=== PATIENT | male | born 1960 | race Caucasian/White ===

== ENCOUNTER 2020-03-04 07:05 | Observation (INO) ==
--- NOTE | 2020-03-04 07:17 | DR.GENAD ---
HPI Time Seen Time Seen by Provider: 03/04/20 07:12 HPI Comment HPI Comment: PATIENT IS 59YR OLD MALE IN ER WITH LEFT SIDED WEAKNESS NOTED AT 06:00AM TODAY. HISTORY PREVIOUS CVA. Complaint/Symptoms Chief Complaint Doctors Comments: LEFT SIDED WEAKNESS SINCE 06:00AM. HISTORY CVA. Nurses notes reviewed Nurses Notes Review: Yes Source History Provided: Patient Mode of Arrival Mode of Arrival: EMS Timing Came on: Suddenly Duration Duration: Constant Duration: Hours Severity Severity: Moderate PMH PMH Past Surgical History: No Social History Do you use any recreational Drugs:: No ROS Review of Systems Constitutional: No Symptoms Reported and See HPI Eyes: No Symptoms Reported and See HPI ENTM: No Symptoms Reported and See HPI Respiratoy: No Symptoms Reported and See HPI Cardiovascular: No Symptoms Reported and See HPI Gastrointestinal/Abdominal: No Symptoms Reported and See HPI Genitourinary: No Symptoms Reported and See HPI Neurological: No Symptoms Reported and See HPI Musculoskeletal: No Symptoms Reported and See HPI Integumentary: No Symptoms Reported and See HPI Hematologic/Lymphatic: No Symptoms Reported and See HPI Endocrine: No Symptoms Reported and See HPI Psychiatric: No Symptoms Reported and See HPI All Other Systems: Reviewed and Negative PE Vital Signs Vitals: Temperature 98.0 F Pulse Rate 76 Respiratory Rate 17 Blood Pressure [Right Arm] 166/93 Blood Pressure 180/85 O2 Sat by Pulse Oximetry 100 General Limitations: No Limitations General Appearance: Alert and In No Apparent Distress Head Head Exam: Normal Inspection Eyes Eye exam: Normal Appearance ENT ENT Exam: Normal Exam External Ear Exam: Normal External Inspection TM/Canal Exam: Bilateral: Normal Nose Exam: Normal Nose Exam Mouth Exam: Normal Inspection Throat Exam: Normal Inspection Neck Neck Exam: Normal Inspection Chest Chest Inspection: Normal Inspection Respiratory Respiratory Exam: Normal Lung Sounds Bilat Respiratory Exam: Bilateral: Clear to Auscultation Cardiovascular Cardiovascular Exam: Regular Rate and Normal Rhythm Abdominal Exam Abdominal Exam: Normal Inspection, Normal Bowel Sounds and Soft Extremities Extremities Exam: Normal Inspection Back Back Exam: Normal Inspection Neurologic Neurological Exam: Alert and Oriented X3 Psychiatric Psychiatric Exam: Normal Affect and Normal Mood Skin Skin Exam: Warm, Dry, Intact and Normal Color MDM Differential Diagnosis Differential Diagnosis: CVA, TIA, COURSE Treatment Treatment: SEE ORDERS. Education/Counseling Education/Counseling: Patient Educated On: Diagnosis ROR Labs Reviewed Result Diagrams: 03/04/20 08:27 03/04/20 08:27 Laboratory: WBC 12.7 X10^3/uL (3.6-10.0) H 03/04/20 08:27 RBC 4.03 X10^6/uL (4.7-6.0) L 03/04/20 08:27 Hgb 10.8 g/dL (13.5-18.0) L 03/04/20 08:27 Hct 32.8 % (42.0-54.0) L 03/04/20 08:27 MCV 81.4 fL (80.0-100.0) 03/04/20 08: MCH 26.9 pg (27.0-34.0) L 03/04/20 08: MCHC 33.0 g/dL (33.0-35.0) 03/04/20 08: RDW 14.7 % (11.6-16.5) 03/04/20 08: Plt Count 414 X10^3/uL (150.0-450.0) 03/04/20 08: MPV 8.0 fL (7.4-11.0) 03/04/20 08:27 Neut % (Auto) 77.9 % (42.0-75.0) H 03/04/20 08: Lymph % (Auto) 13.8 % (21.0-51.0) L 03/04/20 08:27 [place] % (Auto) 7.1 % (0.0-13.0) 03/04/20 08: Eos % (Auto) 0.7 % (0.9-2.9) L 03/04/20 08: Baso % (Auto) 0.5 % (0.2-1.0) 03/04/20 08:27 Neut # (Auto) 9.9 x10^3/uL (2.2-4.8) H 03/04/20 08:27 Lymph # (Auto) 1.8 X10^3/uL (1.3-2.9) 03/04/20 08:27 [place] # (Auto) 0.9 x10^3/uL (0.3-0.8) H 03/04/20 08:27 Eos # (Auto) 0.1 x10^3/uL (0.0-0.2) 03/04/20 08:27 Baso # (Auto) 0.1 X10^3/uL (0.0-0.1) 03/04/20 08:27 Absolute Nucleated RBC 0.0 /100WBC 03/04/20 08:27 Opioid Opioid Risk Tool Age (Paolo box if 16-45): No Total: 0 Total Score Risk Category: Low Risk Copyright: Jonathan ESTES predicting aberrant behaviors
[2020-03-04 07:27] VITALS: BMI 21.9
--- NOTE | 2020-03-04 07:27 | CT ---
HISTORYLeft-sided weakness, history CVASTUDYCT head without contrastTechnique: Axial noncontrast images with coronal and sagittal reformats. Dose reduction procedures were used with mA/kv adjusted for body size.[id number]/05/2019FINDINGSThe ventricles are normal in size, shape, and position. There is evidence for an old CVA involving the right cerebellar hemisphere. There is an old lacunar infarct involving the right basal ganglia. There is slight decreased attenuation in the periventricular white matter suggestive of small vessel vascular disease. There are no focal areas of abnormal attenuation to suggest recent CVA, hemorrhage, mass lesion, or extra-axial fluid collection. The visualized sinuses are clear. The calvarium is intact. If acute CVA remains a strong clinical consideration MRI with diffusion imaging would be of further diagnostic value.IMPRESSIONNo definite acute intracranial abnormalityMild small vessel diseaseOld infarcts as described aboveElectronically signed by: ILIANA CASTILLO (Mar 04, 2020 07:25:43)
[2020-03-04 08:38] LABS: BASOPHILS # (AUTO) 0.1 X10^3/uL (0.0-0.1); BASOPHILS % (AUTO) 0.5 % (0.2-1.0); EOSINOPHILS # (AUTO) 0.1 x10^3/uL (0.0-0.2); EOSINOPHILS % (AUTO) 0.7 % (0.9-2.9); HEMATOCRIT 32.8 % (42.0-54.0); HEMOGLOBIN 10.8 g/dL (13.5-18.0); LYMPHOCYTES # (AUTO) 1.8 X10^3/uL (1.3-2.9); LYMPHOCYTES % (AUTO) 13.8 % (21.0-51.0); MEAN CORPUSCULAR HEMOGLOBIN 26.9 pg (27.0-34.0); MEAN CORPUSCULAR VOLUME 81.4 fL (80.0-100.0); MONOCYTES # (AUTO) 0.9 x10^3/uL (0.3-0.8); MONOCYTES % (AUTO) 7.1 % (0.0-13.0); NEUTROPHILS # (AUTO) 9.9 x10^3/uL (2.2-4.8); NEUTROPHILS % (AUTO) 77.9 % (42.0-75.0); PLATELET COUNT 414 X10^3/uL (150.0-450.0); RED BLOOD COUNT 4.03 X10^6/uL (4.7-6.0); RED CELL DISTRIBUTION WIDTH 14.7 % (11.6-16.5); WHITE BLOOD COUNT 12.7 X10^3/uL (3.6-10.0)
[2020-03-04 08:52] LABS: BLOOD UREA NITROGEN 11 mg/dL (7-18); CALCIUM 9.2 mg/dL (8.5-10.1); CARBON DIOXIDE 28.1 mmol/L (21-32); CHLORIDE 105 mmol/L (98-107); COR NA(FOR HYPERGLY) 144 mmol/L (136-145); CREATININE 1.06 mg/dL (0.70-1.30); SODIUM 143 mmol/L (136-145); TROPONIN I < 0.02 ng/mL (0-1.5); eGFR NON BLACK RACES > 60 (>60)
[2020-03-04 08:56] LABS: ALANINE AMINOTRANSFERASE 17 Units/L (12-78); ALBUMIN 2.8 g/dL (3.4-5.0); ALKALINE PHOSPHATASE 98 Units/L (46-116); ASPARTATE AMINO TRANSFERASE 11 Units/L (15-37); CKMB % 5.6 % (<4); COR CA(FOR HYPOALB) 10.2 mg/dL (8.5-10.1); CREATINE KINASE 18 Units/L (39-308); CREATINE KINASE MB < 1.0 ng/mL (0-4.0); TOTAL PROTEIN 7.1 g/dL (6.4-8.2)
[2020-03-04 10:58] LABS: BILIRUBIN,URINE NEGATIVE (NEGATIVE); BLOOD/HEMOGLOBIN,URINE 5+ (NEGATIVE); GLUCOSE, URINE NEGATIVE (NEGATIVE); KETONES,URINE NEGATIVE (NEGATIVE); LEUKOCYTE ESTERASE ,URINE 2+ (NEGATIVE); NITRITES,URINE NEGATIVE (NEGATIVE); PROTEIN,URINE 1+ (NEGATIVE); UROBILINOGEN,URINE NORMAL (NORMAL)
--- NOTE | 2020-03-04 11:00 | CT ---
HISTORYStroke worsening symptomSTUDYCTA brain with without contrastCOMPARISONCT same dayTECHNIQUEMultiple axial images of the brain were obtained from the skull base to the vertex before and after administration of IV contrast. A CTA protocol utilizing three-dimensional, sagittal coronal reformats were submitted and reviewed. Dose reduction techniques including Automated Exposure Control (AEC) and adjustment of mA and kV were utlized.FINDINGS[No acute intraparenchymal hemorrhage or mass can be identified.] [No extra-axial fluid collections are seen.] [No alteration in the attenuation of the brain parenchyma can be identified to suggest acute or subacute ischemic change.] Stable small vessel ischemic changes and old lacunar infarcts are noted in the right cerebellar hemisphere. [The ventricular system is symmetric and nondilated.] [The extracranial structures are grossly unremarkable.]Evaluation of the ICAs demonstrates some mild plaque formation the cavernous portions of the ICAs. The middle cerebral arteries and anterior cerebral arteries appear widely patent. There is no evidence for any aneurysm dilatation dissection. There is some venous contamination which limits evaluation. Posterior circulation is unremarkable. The vertebral basilar system appears codominant.IMPRESSIONMild plaque is noted in the cavernous ICAs otherwise negative CTA of the brain..]Electronically signed by: ZAMZAM UGARTE (Mar 04, 2020 10:58:23)
[2020-03-04 11:02] LABS: APPEARANCE,URINE CLOUDY (CLEAR); COLOR,URINE YELLOW (YELLOW)
--- NOTE | 2020-03-04 11:02 | CT ---
HISTORYCVA, WORSENING SYMPTOMS, CVA 1 YEAR AGOSTUDYCAROTID CTACOMPARISONNoneTECHNIQUEMultiple axial images of the neck were obtained from skull base to the aortic arch before and after the administration of IV contrast. A CTA protocol utilizing three-dimensional, sagittal and coronal reformats were performed and reviewed. Dose reduction techniques including Automated Exposure Control (AEC) and adjustment of mA and kV were utilized.FINDINGSThe visualized portions of the posterior fossa and orbits are unremarkable in appearance. The parotid glands, submandibular glands, and thyroid gland are unremarkable in their [contrast] appearance. The carotid space on the right and left is unremarkable. No mass or significant lymphadenopathy can be identified. The prevertebral and paraspinous regions are unremarkable. The nasopharynx, oropharynx, hypopharynx are unremarkable. The larynx appears symmetric. The visualized portions of the mediastinum are unremarkable as well. The bony structures appear intact. The visualized portions of the lung apex on the right and left are unremarkable as well.Origins great vessels are not completely included in the field of view appear widely patent. There is no significant plaque formation noted in the ICAs. There is no evidence for any dissection. The vertebral arteries appear codominant with no evidence for any significant plaque formation or dissection.IMPRESSIONNegative CTA of the neck.Electronically signed by: ZAMZAM UGARTE (Mar 04, 2020 11:01:29)
[2020-03-04 11:13] LABS: BACTERIA,URINE 1+ /HPF (NEGATIVE); RBC,URINE 20-30 /HPF (0-3); SQUAMOUS EPITHELIAL CELL,UR NEGATIVE /HPF (NEGATIVE)
--- NOTE | 2020-03-04 11:15 | DR.GENAD ---
HPI Time Seen Time Seen by Provider: 03/04/20 07:12 PCP Primary Care Physician: FAUSTINO Complaint/Symptoms Chief Complaint:: PT. C/O WORSENING LEFT SIDED WEAKNESS AT 0530. PT. HAD A CVA IS NOVEMBER OF 2018. PT. STATES HIS LEFT ARM FELT LIKE IT WAS ASLEEP AND HE WAS UNABLE TO MOVE HIS LEFT LEG. UPON ARRIVAL TO THE ER, PT. STATES HIS ARM STILLS FEELS LIKE IT IS ASLEEP BUT HE IS ABLE TO MOVE HIS LEFT LEG MORE THAN WHEN SYMPTOMS FIRST BEGAN. COVID-19 Coronavirus risk:travel/contact w/high risk person: No Has patient experienced Coronavirus symptoms: No Nurses notes reviewed Nurses Notes Review: Yes Source History Provided: Patient and EMS Mode of Arrival Mode of Arrival: EMS Timing Onset of Chief Complaint: 03/04/20 Came on: Suddenly Duration Duration: Constant Duration: Hours Severity Severity: Moderate PMH PMH Past Medical History: Yes Past Medical History: CVA, Diabetes and Hypertension Past Surgical History: Yes Surgical History: Appendectomy Family History History of Family Medical Conditions: No Social History Does patient currently use any type of tobacco product: Yes Have you used tobacco products in the last 12 months: Yes Type of Tobacco Use: DIPS Does any household member use tobacco: No Alcohol Use: Occasionally Do you use any recreational Drugs:: No Lives With: Family Lives Where: Home Travel Risk Coronavirus risk:travel/contact w/high risk person: No Has patient experienced Coronavirus symptoms: No Infectious screening In the last 2 months have you had wt loss of >10#?: NO Have you had fever, night sweats or hemotysis?: No Have you traveled outside the country in the last 6 months?: No Isolation: Standard PE Vital Signs Vitals: Temperature 98.0 F Pulse Rate 77 Respiratory Rate 17 Blood Pressure [Right Arm] 166/93 Blood Pressure 187/92 O2 Sat by Pulse Oximetry 98 COURSE Consultation Called: 11:16 Call Returned: 11:32 Consultation Comments: case discussed with admit stroke treatment ROR Labs Reviewed Result Diagrams: 03/04/20 08:27 03/04/20 08:27 Laboratory: WBC 12.7 X10^3/uL (3.6-10.0) H 03/04/20 08:27 RBC 4.03 X10^6/uL (4.7-6.0) L 03/04/20 08:27 Hgb 10.8 g/dL (13.5-18.0) L 03/04/20 08:27 Hct 32.8 % (42.0-54.0) L 03/04/20 08:27 MCV 81.4 fL (80.0-100.0) 03/04/20 08:27 MCH 26.9 pg (27.0-34.0) L 03/04/20 08:27 MCHC 33.0 g/dL (33.0-35.0) 03/04/20 08: RDW 14.7 % (11.6-16.5) 03/04/20 08:27 Plt Count 414 X10^3/uL (150.0-450.0) 03/04/20 08:27 MPV 8.0 fL (7.4-11.0) 03/04/20 08:27 Neut % (Auto) 77.9 % (42.0-75.0) H 03/04/20 08:27 Lymph % (Auto) 13.8 % (21.0-51.0) L 03/04/20 08:27 [place] % (Auto) 7.1 % (0.0-13.0) 03/04/20 08: Eos % (Auto) 0.7 % (0.9-2.9) L 03/04/20 08:27 Baso % (Auto) 0.5 % (0.2-1.0) 03/04/20 08:27 Neut # (Auto) 9.9 x10^3/uL (2.2-4.8) H 03/04/20 08:27 Lymph # (Auto) 1.8 X10^3/uL (1.3-2.9) 03/04/20 08:27 [place] # (Auto) 0.9 x10^3/uL (0.3-0.8) H 03/04/20 08:27 Eos # (Auto) 0.1 x10^3/uL (0.0-0.2) 03/04/20 08:27 Baso # (Auto) 0.1 X10^3/uL (0.0-0.1) 03/04/20 08:27 Absolute Nucleated RBC 0.0 /100WBC 03/04/20 08:27 PT 13.9 SECONDS (11.8-14.3) 03/04/20 08:27 INR Target Range - 03/04/20 08:27 INR 1.10 (0.8-1.3) 03/04/20 08:27 APTT 30.8 SECONDS (22.9-36.5) 03/04/20 08:27 PTT Comment - 03/04/20 08:27 Sodium 143 mmol/L (136-145) 03/04/20 08:27 Corrected Sodium 144 mmol/L (136-145) 03/04/20 08:27 Potassium 3.5 mmol/L (3.5-5.1) 03/04/20 08:27 Chloride 105 mmol/L (98-107) 03/04/20 08:27 Carbon Dioxide 28.1 mmol/L (21-32) 03/04/20 08:27 BUN 11 mg/dL (7-18) 03/04/20 08:27 Creatinine 1.06 mg/dL (0.70-1.30) 03/04/20 08:27 Est GFR (MDRD) Af Amer > 60 (>60) 03/04/20 08:27 Est GFR (MDRD) Non-Af > 60 (>60) 03/04/20 08:27 Glucose 147 mg/dL (65-99) H 03/04/20 08:27 POC Glucose (mg/dL) 136 mg/dL (65-99) H 03/04/20 07:30 Calcium 9.2 mg/dL (8.5-10.1) 03/04/20 08:27 Corrected Calcium 10.2 mg/dL (8.5-10.1) H 03/04/20 08:27 Total Bilirubin 0.30 mg/dL (0.2-1.0) 03/04/20 08:27 AST 11 Units/L (15-37) L 03/04/20 08:27 ALT 17 Units/L (12-78) 03/04/20 08:27 Alkaline Phosphatase 98 Units/L (46-116) 03/04/20 08:27 Creatine Kinase 18 Units/L (39-308) L 03/04/20 08:27 CK-MB (CK-2) < 1.0 ng/mL (0-4.0) 03/04/20 08:27 CK/CKMB % Calc 5.6 % (<4) 03/04/20 08:27 Troponin I < 0.02 ng/mL (0-1.5) 03/04/20 08:27 Total Protein 7.1 g/dL (6.4-8.2) 03/04/20 08:27 Albumin 2.8 g/dL (3.4-5.0) L 03/04/20 08:27 Globulin 4.3 g/dL (2.5-4.5) 03/04/20 08:27 Albumin/Globulin Ratio 0.7 Ratio (1.1-2.1) L 03/04/20 08:27 Specimen Type Random urine 03/04/20 10:44 Urine Color Yellow (YELLOW) 03/04/20 10:44 Urine Appearance Cloudy (CLEAR) 03/04/20 10:44 Urine pH 6.0 (5.0 - 8.0) 03/04/20 10:44 Ur Specific [place] 1.015 (1.000-1.030) 03/04/20 10:44 Urine Protein 1+ (NEGATIVE) 03/04/20 10:44 Urine Glucose (UA) Negative (NEGATIVE) 03/04/20 10:44 Urine Ketones Negative (NEGATIVE) 03/04/20 10:44 Urine Occult Blood 5+ (NEGATIVE) 03/04/20 10:44 Urine Nitrite Negative (NEGATIVE) 03/04/20 10:44 Urine Bilirubin Negative (NEGATIVE) 03/04/20 10:44 Urine Urobilinogen Normal (NORMAL) 03/04/20 10:44 Ur Leukocyte Esterase 2+ (NEGATIVE) 03/04/20 10:44 Urine RBC 20-30 /HPF (0-3) A 03/04/20 10:44 Urine WBC 10-20 /HPF (0-5) A 03/04/20 10:44 Ur Squamous Epith Cells Negative /HPF (NEGATIVE) 03/04/20 10:44 Urine Bacteria 1+ /HPF (NEGATIVE) 03/04/20 10:44 Ur Culture Indicated? Yes/culture set up 03/04/20 10:44 XRAY XRAY Interpreted by: Radiologist X-ray Results: CTA brain and carotids: no stenosis or significant blockage Opioid Opioid Risk Tool Age (Paolo box if 16-45): No History of Preadolescent Sexual Abuse: No Total: 0 Total Score Risk Category: Low Risk Copyright: Jonathan ESTES predicting aberrant behaviors
--- NOTE | 2020-03-04 12:45 | MRI ---
HISTORYCVASTUDYMRA HEAD W/O CONCOMPARISONCTA brain from 03/04/2020TECHNIQUE[1.5 T] 3D [id number] MR angiography of the brain was performed. Rotating MIP images were generated and reviewed.FINDINGSLimitations: [Mild motion degradation.]Intracranial internal carotid arteries: [Patent.] Mild atherosclerosis of the cavernous segments better seen on CTA.Anterior cerebral arteries: [Patent.]Middle cerebral arteries: [Patent.]Vertebrobasilar system:[Patent.]Posterior cerebral arteries: [Normal.]No vascular malformation.IMPRESSION[][No significant stenosis or occlusion.]Electronically signed by: Apollo Wright (Mar 04, 2020 12:42:56)
[2020-03-04] MEDS: MACROBID CAP 100 MG EXT REL PO SCH ×2 (14:56→21:40)
[2020-03-04] MEDS: NS 1000 ML 1,000 ML IV SCH (14:57)
[2020-03-05 06:51] LABS: BASOPHILS # (AUTO) 0.1 X10^3/uL (0.0-0.1); BASOPHILS % (AUTO) 0.5 % (0.2-1.0); EOSINOPHILS # (AUTO) 0.1 x10^3/uL (0.0-0.2); EOSINOPHILS % (AUTO) 0.7 % (0.9-2.9); HEMATOCRIT 31.8 % (42.0-54.0); HEMOGLOBIN 10.7 g/dL (13.5-18.0); LYMPHOCYTES % (AUTO) 16.6 % (21.0-51.0); MEAN CORPUSCULAR HEMOGLOBIN 27.2 pg (27.0-34.0); MEAN CORPUSCULAR HGB CONC 33.7 g/dL (33.0-35.0); MEAN CORPUSCULAR VOLUME 80.8 fL (80.0-100.0); MEAN PLATELET VOLUME 8.5 fL (7.4-11.0); MONOCYTES # (AUTO) 0.9 x10^3/uL (0.3-0.8); NEUTROPHILS # (AUTO) 8.8 x10^3/uL (2.2-4.8); NEUTROPHILS % (AUTO) 74.2 % (42.0-75.0); PLATELET COUNT 396 X10^3/uL (150.0-450.0); RED BLOOD COUNT 3.93 X10^6/uL (4.7-6.0); RED CELL DISTRIBUTION WIDTH 14.7 % (11.6-16.5); WHITE BLOOD COUNT 11.8 X10^3/uL (3.6-10.0)
[2020-03-05 07:02] LABS: ALANINE AMINOTRANSFERASE 16 Units/L (12-78); ALBUMIN 2.9 g/dL (3.4-5.0); ALKALINE PHOSPHATASE 94 Units/L (46-116); ASPARTATE AMINO TRANSFERASE 13 Units/L (15-37); BLOOD UREA NITROGEN 10 mg/dL (7-18); CALCIUM 9.3 mg/dL (8.5-10.1); CARBON DIOXIDE 26.2 mmol/L (21-32); CHLORIDE 105 mmol/L (98-107); COR CA(FOR HYPOALB) 10.2 mg/dL (8.5-10.1); COR NA(FOR HYPERGLY) 142 mmol/L (136-145); CREATININE 1.04 mg/dL (0.70-1.30); SODIUM 141 mmol/L (136-145); eGFR NON BLACK RACES > 60 (>60)
[2020-03-05 08:45] LABS: HEMOGLOBIN A1C 6.9 %
[2020-03-05 08:55] LABS: CHOL/HDL RATIO 4.9 (0.0-5.0); FREE T4 (FREE THYROXINE) 1.12 ng/dL (0.76-1.46); TSH (3RD GENERATION) 2.699 uIU/mL (0.358-3.74)
[2020-03-05] MEDS: LEVEMIR SC SCH (08:59)
[2020-03-05] MEDS: MACROBID CAP 100 MG EXT REL PO SCH ×2 (08:59→21:27)
[2020-03-05] MEDS: NORVASC TAB 10 MG PO SCH (09:00)
[2020-03-05] MEDS: PLAVIX PO SCH (09:00)
[2020-03-05 09:01] LABS: TOTAL PSA 0.32 ng/mL (0.13-4.0)
--- NOTE | 2020-03-05 13:11 | RAD ---
HISTORYAMSSTUDYCHEST, 1 VIEWCOMPARISONNone.FINDINGSMedical device projects over the left lung base. Heart size probably within normal limits. Small faint opacity in the right upper lobe. Lungs otherwise clear. Costophrenic angles sharp. Bony structures normal in appearance for patient's age. No tracheal deviation. Moderate elevation of the right hemidiaphragm.IMPRESSIONSmall faint opacity in right upper lobe. Recommend repeat examination in 1-2 months to assess for resolution.Electronically signed by: Jamin Jimenez (Mar 05, 2020 13:09:03)
[2020-03-05] MEDS: NS 1000 ML 1,000 ML IV SCH (14:03)
[2020-03-05] MEDS ORDERED: MICRO K EXTEN CAP 10 MEQ PO PRN (14:28)
[2020-03-05] MEDS ORDERED: MAGNESIUM SULFATE 1 GRAM/100 mL PREMIX 1 GM/100 ML BAG IV PRN (14:28)
[2020-03-05] MEDS ORDERED: POTASSIUM CHL 40 MEQ/NS 0.45% 500 ML IV PRN (14:28)
[2020-03-05] MEDS ORDERED: POTASSIUM CHL 60 MEQ/NS 0.45% 500 ML IV PRN (14:28)
[2020-03-05] MEDS ORDERED: K-RIDER 10 MEQ/NS 100 ML 10 MEQ/100 ML BAG IV PRN (14:28)
[2020-03-05] MEDS ORDERED: KLOR-CON PO PRN (14:28)
[2020-03-05] MEDS ORDERED: POTASSIUM CHLORIDE LIQ 20 MEQ UDC PO PRN (14:28)
[2020-03-05] MEDS: K-DUR TAB 20 MEQ PO PRN (16:20)
[2020-03-05] MEDS: CIPRO IV 400 MG PREMIX* 400 MG/200 ML IV.SOLN. IV SCH (18:15)
--- NOTE | 2020-03-05 18:20 | DR.H&P ---
H&P - History & Physical for Day of: H&P Date: 03/04/20 - Chief Complaint Chief Complaint: ACUTE LEFT SIDE WEAKNESS - History of Present Illness History of Present Illness: PT IS 59 WM ER ADMISSION WITH CO LEFT UPPER AND LOWER EXTREMITY WEAKNESS, STARTED ON WEDNESDAY AND GRADUALLY GOT WORSE. PT HAS PMH OF CVA OVER A YEAR AGO. PT HAS HTN AND DM. PT DENIES ANY CCC OR FLU LIKE SYMPTOMS, DENIES ANY CHEST PAIN OR SOB. PT HAD CT HEAD IN ER WITH OUT ACUTE FINDINGS. - Past Medical History Past Medical History: Hypertension, Diabetes, CVA - Past Surgical History Surgical History: Appendectomy - Social History Does patient currently use any type of tobacco product: Yes Have you used tobacco products in the last 12 months: Yes Type of Tobacco Use: DIPS Does any household member use tobacco: No Alcohol Use: Occasionally Drug Use: None - Medications Home Medications: shellfish derived Allergy (Verified 03/04/20 07:23) CONTINUE taking the following medications clopidogrel [Plavix] 75 mg PO DAILY 03/04/20 [History] insulin detemir U-100 [Levemir U-100 Insulin] 30 unit SUBCUT DAILY 03/04/20 [History] - Review of Systems Constitutional: Weakness Eyes: No Symptoms Reported ENT: No Symptoms Reported Respiratory: No Symptoms Reported Cardiovascular: No Symptoms Reported Gastrointestinal: No Symptoms Reported Genitourinary: No Symptoms Reported Musculoskeletal: Leg Pain Skin: No Symptoms Reported Neurological: Weakness, Numbness (LEFT UPPER AND LOWER EXTREMITY WEAKNESS) - Physical Exam Vital Signs: Temperature 97.7 F Pulse Rate [Right Brachial] 78 Pulse Rate 76 Respiratory Rate 18 Blood Pressure [Right Arm] 139/75 Blood Pressure 146/96 O2 Sat by Pulse Oximetry 99 Oriented: Normal Eyes: Blurred Vision Ear: Normal Nose: Normal Throat: Normal Respiratory: Clear Throughout Cardiovascular: Normal. negative: Edema : Normal Auscultation: Bowel Sounds: Normal Palpation: Normal Tenderness: Normal Skin: Decreased Turgur Musculoskeletal: Left, Arm, Leg, Motor Deficit, Sensory Deficit Psychiatric: Anxiety Affect: Anxious Speech Pattern: Clear, Appropriate - Assessment/Plan (1) Acute left-sided weakness Status: Acute Plan: ADMIT, CT HEAD IN ER ON ADMISSION, MRI/MRA BRAIN. SERIAL CE, EKG, CXR. BS CONTROL, BP CONTROL, CTA CAROTIDS. AM LIPID PANEL, PT CONSULT (2) Diabetes Status: Acute (3) History of CVA (cerebrovascular accident) Status: Acute (4) Hypertensive emergency Status: Acute - Allergies Allergies/Adverse Reactions: Allergies Allergy/AdvReac Type Severity Reaction Status Date / Time shellfish derived Allergy Verified 03/04/20 07:23
[2020-03-05] MEDS: SNACK - Diabetic Appropriate PO SCH (20:20)
[2020-03-05] MEDS: MILK OF MAGNESIA PO SCH (21:27)
[2020-03-05] MEDS: ZOCOR TAB 20 MG PO SCH (21:27)
[2020-03-05] MEDS: COLACE CAP 100 MG PO SCH (21:27)
--- NOTE | 2020-03-06 06:07 | RAD ---
HISTORYFollow-up lung infiltrateSTUDYChest AP [id number]/01/2020FINDINGSThe heart is within normal limits in size. The sukhwinder are normal. The lungs are well inflated and free of acute infiltrates. No pleural effusions are identified. Bony thorax is unremarkable. There is a loop recorder overlying the heart.IMPRESSIONLungs clearElectronically signed by: ILIANA CASTILLO (Mar 06, 2020 06:05:45)
[2020-03-06 06:51] LABS: BASOPHILS % (AUTO) 0.4 % (0.2-1.0); EOSINOPHILS # (AUTO) 0.1 x10^3/uL (0.0-0.2); EOSINOPHILS % (AUTO) 1.2 % (0.9-2.9); HEMATOCRIT 32.2 % (42.0-54.0); HEMOGLOBIN 10.3 g/dL (13.5-18.0); LYMPHOCYTES # (AUTO) 1.9 X10^3/uL (1.3-2.9); LYMPHOCYTES % (AUTO) 16.2 % (21.0-51.0); MEAN CORPUSCULAR HEMOGLOBIN 26.5 pg (27.0-34.0); MEAN CORPUSCULAR HGB CONC 32.1 g/dL (33.0-35.0); MEAN CORPUSCULAR VOLUME 82.5 fL (80.0-100.0); MEAN PLATELET VOLUME 8.6 fL (7.4-11.0); MONOCYTES % (AUTO) 8.7 % (0.0-13.0); NEUTROPHILS # (AUTO) 8.8 x10^3/uL (2.2-4.8); NEUTROPHILS % (AUTO) 73.5 % (42.0-75.0); PLATELET COUNT 392 X10^3/uL (150.0-450.0); RED CELL DISTRIBUTION WIDTH 14.4 % (11.6-16.5)
[2020-03-06 07:04] LABS: ALANINE AMINOTRANSFERASE 14 Units/L (12-78); ALBUMIN 2.7 g/dL (3.4-5.0); ALKALINE PHOSPHATASE 94 Units/L (46-116); ASPARTATE AMINO TRANSFERASE 11 Units/L (15-37); BLOOD UREA NITROGEN 11 mg/dL (7-18); CALCIUM 9.1 mg/dL (8.5-10.1); CARBON DIOXIDE 25.6 mmol/L (21-32); CHLORIDE 107 mmol/L (98-107); COR CA(FOR HYPOALB) 10.1 mg/dL (8.5-10.1); COR NA(FOR HYPERGLY) 145 mmol/L (136-145); CREATININE 1.05 mg/dL (0.70-1.30); SODIUM 144 mmol/L (136-145); TOTAL PROTEIN 6.6 g/dL (6.4-8.2); eGFR NON BLACK RACES > 60 (>60)
[2020-03-06] MEDS: LEVEMIR SC SCH (10:19)
[2020-03-06] MEDS: MILK OF MAGNESIA PO SCH ×3 (10:19→20:36)
[2020-03-06] MEDS: CIPRO IV 400 MG PREMIX* 400 MG/200 ML IV.SOLN. IV SCH (10:20)
[2020-03-06] MEDS: PLAVIX PO SCH (10:21)
[2020-03-06] MEDS: NORVASC TAB 10 MG PO SCH (10:21)
[2020-03-06] MEDS: K-DUR TAB 20 MEQ PO PRN (10:22)
[2020-03-06] MEDS: MACROBID CAP 100 MG EXT REL PO SCH (10:22)
[2020-03-06] MEDS ORDERED: HumuLIN R SUBCUT PRN (11:09)
[2020-03-06] MEDS ORDERED: HumuLIN R ONE (11:13)
[2020-03-06] MEDS: NS 1000 ML 1,000 ML IV SCH (11:30)
[2020-03-06] MEDS: ZESTRIL TAB 10 MG PO SCH (15:51)
[2020-03-06] MEDS ORDERED: ZESTRIL TAB 10 MG ONE (15:51)
[2020-03-06] MEDS: ROCEPHIN VIAL 1 GRAM 1 G in NS 100 ML IV + SPIKE MINIBAG* 100 ML IV SCH (18:47)
[2020-03-06] MEDS ORDERED: SNACK - Diabetic Appropriate PO SCH ×2 (20:00)
[2020-03-06] MEDS: SNACK - Diabetic Appropriate PO SCH (20:26)
[2020-03-06] MEDS: COLACE CAP 100 MG PO SCH (20:27)
[2020-03-06] MEDS: ZOCOR TAB 20 MG PO SCH (20:27)
[2020-03-07 05:09] LABS: BASOPHILS # (AUTO) 0.1 X10^3/uL (0.0-0.1); BASOPHILS % (AUTO) 0.5 % (0.2-1.0); EOSINOPHILS # (AUTO) 0.1 x10^3/uL (0.0-0.2); HEMATOCRIT 29.7 % (42.0-54.0); HEMOGLOBIN 10.1 g/dL (13.5-18.0); LYMPHOCYTES # (AUTO) 2.1 X10^3/uL (1.3-2.9); LYMPHOCYTES % (AUTO) 19.1 % (21.0-51.0); MEAN CORPUSCULAR HEMOGLOBIN 27.6 pg (27.0-34.0); MEAN CORPUSCULAR HGB CONC 33.9 g/dL (33.0-35.0); MEAN CORPUSCULAR VOLUME 81.5 fL (80.0-100.0); MONOCYTES # (AUTO) 0.9 x10^3/uL (0.3-0.8); MONOCYTES % (AUTO) 8.4 % (0.0-13.0); NEUTROPHILS # (AUTO) 7.9 x10^3/uL (2.2-4.8); PLATELET COUNT 344 X10^3/uL (150.0-450.0); RED BLOOD COUNT 3.64 X10^6/uL (4.7-6.0); RED CELL DISTRIBUTION WIDTH 14.7 % (11.6-16.5); WHITE BLOOD COUNT 11.1 X10^3/uL (3.6-10.0)
[2020-03-07 05:25] LABS: ALANINE AMINOTRANSFERASE 13 Units/L (12-78); ALBUMIN 2.5 g/dL (3.4-5.0); ALKALINE PHOSPHATASE 92 Units/L (46-116); ASPARTATE AMINO TRANSFERASE 10 Units/L (15-37); BLOOD UREA NITROGEN 13 mg/dL (7-18); CALCIUM 8.8 mg/dL (8.5-10.1); CARBON DIOXIDE 29.1 mmol/L (21-32); CHLORIDE 109 mmol/L (98-107); COR NA(FOR HYPERGLY) 145 mmol/L (136-145); CREATININE 1.13 mg/dL (0.70-1.30); SODIUM 144 mmol/L (136-145); TOTAL PROTEIN 6.2 g/dL (6.4-8.2); eGFR NON BLACK RACES > 60 (>60)
[2020-03-07] MEDS ORDERED: AMARYL TAB 4 MG ONE (05:40)
[2020-03-07] MEDS ORDERED: AMARYL TAB 4 MG PO SCH (07:00)
[2020-03-07] MEDS: NORVASC TAB 10 MG PO SCH (09:15)
[2020-03-07] MEDS: PLAVIX PO SCH (09:16)
[2020-03-07] MEDS: ZESTRIL TAB 10 MG PO SCH (09:16)
[2020-03-07] MEDS: ROCEPHIN VIAL 1 GRAM 1 G in NS 100 ML IV + SPIKE MINIBAG* 100 ML IV SCH (09:16)
[2020-03-07] MEDS: MILK OF MAGNESIA PO SCH (09:16)
[2020-03-07] MEDS: NS 1000 ML 1,000 ML IV SCH (11:16)
[2020-03-07 16:10] VITALS: BP 175/82
== END 2020-03-07 16:35 | disposition home or self-care (01) ==
LOC: MED/SURG 07:05 → ER 07:05 → MED/SURG 13:39
PROVIDERS: ADMIT Internal Medicine; ATTEND Internal Medicine
DX: Z86.73 Personal history of transient ischemic attack (TIA), and cerebral infarction without residual deficits; M62.81 Muscle weakness (generalized); N39.0 Urinary tract infection, site not specified; R06.02 Shortness of breath; E11.65 Type 2 diabetes mellitus with hyperglycemia; B96.29 Other Escherichia coli [E. coli] as the cause of diseases classified elsewhere; I16.0 Hypertensive urgency; R20.0 Anesthesia of skin; R41.82 Altered mental status, unspecified

== ENCOUNTER 2021-01-28 17:35 | Inpatient (IN) ==
--- NOTE | 2021-01-28 17:52 | DR.N/VMALE ---
HPI <MARLENYFREDDIE HECTOR - Last Filed: 01/28/21 19:33> Time Seen Time Seen by Provider: 01/28/21 17:49 Primary Care Physician Primary Care Physician: Corby Monterroso Chief Complaint Doctors Comments: VOMITING SINCE THIS AM. Chief Complaint:: Pt c/o vomiting since this am. He denies abd pain. He states he has not had a bowel movement in several days. COVID-19 Coronavirus risk:travel/contact w/high risk person: No Has patient experienced Coronavirus symptoms: No Reviewed Nurses Notes Reviewed: Yes Source History Provided: Patient Mode of Arrival Mode of Arrival: Ambulatory Timing Onset of Chief Complaint: 01/28/21 Context Onset: Spontaneous Recent: None History of: None Quality Quality: Food Particles Associated Signs and Symptoms Symptoms: denies Abdominal Pain and Diarrhea (CONSTIPATION.) PMH <ZACHKI YOUNG - Last Filed: 01/28/21 19:33> PMH Past Medical History: Yes Past Medical History: CVA, Diabetes and Hypertension Past Surgical History: Yes Surgical History: Appendectomy Family History History of Family Medical Conditions: Yes Family Medical History: Diabetes Mellitus and Hypertension Social History Does patient currently use any type of tobacco product: Yes Have you used tobacco products in the last 12 months: Yes Type of Tobacco Use: Smokeless Does any household member use tobacco: Yes Alcohol Use: DAILY Do you use any recreational Drugs:: No Lives With: Family Lives Where: Home Travel Risk Coronavirus risk:travel/contact w/high risk person: No Has patient experienced Coronavirus symptoms: No Infectious screening In the last 2 months have you had wt loss of >10#?: NO Have you had fever, night sweats or hemotysis?: No Have you traveled outside the country in the last 6 months?: No Isolation: Standard ROS <ZACHKI YOUNG - Last Filed: 01/28/21 19:33> Review of Systems Constitutional: No Symptoms Reported, See HPI, Weakness and Fatigue; negative Fever Eyes: No Symptoms Reported and See HPI ENTM: No Symptoms Reported and See HPI; negative Nose Discharge and Nose Congestion Respiratoy: No Symptoms Reported and See HPI; negative Moist Cough, Short of Breath and Wheezing Cardiovascular: No Symptoms Reported and See HPI; negative Chest Pain Gastrointestinal/Abdominal: See HPI, Constipation and Vomiting; negative Abdominal Pain and Diarrhea Genitourinary: No Symptoms Reported and See HPI; negative Dysuria, Frequency and Hematuria Neurological: See HPI and Weakness; negative Headache and Dizziness Musculoskeletal: No Symptoms Reported and See HPI; negative Back Pain and Muscle Pain Integumentary: No Symptoms Reported and See HPI; negative Change in Color, Rash and Juandice Hematologic/Lymphatic: No Symptoms Reported and See HPI; negative Easy Bruising Endocrine: No Symptoms Reported and See HPI; negative Increased Thirst and Increased Urine Psychiatric: No Symptoms Reported and See HPI All Other Systems: Reviewed and Negative PE <JOSHUA YOUNG - Last Filed: 01/28/21 19:33> Vital Signs Vitals: Temperature 98.3 F Pulse Rate 123 Respiratory Rate 18 Blood Pressure [Right Arm] 121/63 Blood Pressure 99/64 O2 Sat by Pulse Oximetry 96 General Limitations: No Limitations General Appearance: Alert and In No Apparent Distress Head Head Exam: Normal Inspection, Atraumatic and Normocephalic Eyes Eye exam: Normal Appearance and PERRL; negative Scleral Icterus and Conjunctival Injection ENT ENT Exam: Normal Exam, Normal Oropharynx, Normal External Ear Exam and TM's Normal Bilaterally Neck Neck Exam: Normal Inspection and Trachea Midline; negative Tenderness and Lymphadenopathy Chest Chest Inspection: Normal Inspection and Symmetric Chest Wall Rise; negative Tenderness Respiratory Respiratory Exam: Normal Lung Sounds Bilat; negative Accessory Muscle Use, Chest Wall Tenderness and Respiratory Distress Respiratory Exam: Bilateral: Clear to Auscultation Cardiovascular Cardiovascular Exam: Regular Rate, Normal Rhythm and Normal Heart Sounds; negative Systolic Murmur and Diastolic Murmur Abdominal Exam Abdominal Exam: Normal Inspection, Normal Bowel Sounds and Soft; negative Tenderness Rectal Rectal Exam: Deferred Exam: Male: Deferred Extremities Extremities Exam: Normal Inspection and Normal Capillary Refill Back Back Exam: Normal Inspection; negative (R) CVA Tenderness and (L) CVA Tenderness Neurologic Neurological Exam: Alert and Oriented X3; negative Motor Sensory Deficit Psychiatric Psychiatric Exam: Normal Affect and Normal Mood Skin Skin Exam: Dry <Lluvia Lawrence - Last Filed: 01/29/21 04:23> Vital Signs Vitals: Temperature 98.3 F Pulse Rate 123 Respiratory Rate 18 Blood Pressure [Right Arm] 121/63 Blood Pressure 99/64 O2 Sat by Pulse Oximetry 96 MDM <JOSHUA YOUNG - Last Filed: 01/28/21 19:33> Differential Diagnosis Differential Diagnosis: Considerations may Include:: Bowel Obstruction, C holecystitis, Gastritis, Gastroenteritis, Inflammatory BD, Pancreatitis, PUD, Urinary Tract Infection and Urolithiasis COURSE <JOSHUA YOUNG - Last Filed: 01/28/21 19:33> Treatment Treatment: SEE ORDERS. NS 1L IV BOLUS, ZOFRAN 4MG IV IN ER. <Lluvia Lawrence - Last Filed: 01/29/21 04:23> Treatment Treatment: 2000 took over pt care Reevaluation 1st: Worsened (threw up again; unable to keep water down after two doses of zofran and iv fluids) Consultation Consultation Comments: Dr Domingo accepts admission ROR <JOSHUA YONUG - Last Filed: 01/28/21 19:33> Labs Reviewed Result Diagrams: 01/28/21 18:11 01/28/21 18:11 Laboratory: WBC 17.3 X10^3/uL (3.6-10.0) H 01/28/21 18:11 RBC 4.42 X10^6/uL (4.7-6.0) L 01/28/21 18:11 Hgb 12.6 g/dL (13.5-18.0) L 01/28/21 18:11 Hct 37.4 % (42.0-54.0) L 01/28/21 18:11 MCV 84.5 fL (80.0-100.0) 01/28/21 18:11 MCH 28.4 pg (27.0-34.0) 01/28/21 18:11 MCHC 33.7 g/dL (33.0-35.0) 01/28/21 18:11 RDW 14.5 % (11.6-16.5) 01/28/21 18:11 Plt Count 184 X10^3/uL (150.0-450.0) 01/28/21 18:11 MPV 9.8 fL (7.4-11.0) 01/28/21 18:11 Neut % (Auto) 85.5 % (42.0-75.0) H 01/28/21 18:11 Lymph % (Auto) 6.2 % (21.0-51.0) L 01/28/21 18:11 [place] % (Auto) 8.1 % (0.0-13.0) 01/28/21 18:11 Eos % (Auto) 0.0 % (0.9-2.9) L 01/28/21 18:11 Baso % (Auto) 0.2 % (0.2-1.0) 01/28/21 18:11 Neut # (Auto) 14.8 x10^3/uL (2.2-4.8) H 01/28/21 18:11 Lymph # (Auto) 1.1 X10^3/uL (1.3-2.9) L 01/28/21 18:11 [place] # (Auto) 1.4 x10^3/uL (0.3-0.8) H 01/28/21 18:11 Eos # (Auto) 0.0 x10^3/uL (0.0-0.2) 01/28/21 18:11 Baso # (Auto) 0.0 X10^3/uL (0.0-0.1) 01/28/21 18:11 Absolute Nucleated RBC 0.1 /100WBC 01/28/21 18:11 Sodium 135 mmol/L (136-145) L 01/28/21 18:11 Corrected Sodium 140 mmol/L (136-145) 01/28/21 18:11 Potassium 4.3 mmol/L (3.5-5.1) 01/28/21 18:11 Chloride 99 mmol/L (98-107) 01/28/21 18:11 Carbon Dioxide 26.7 mmol/L (21-32) 01/28/21 18:11 BUN 15 mg/dL (7-18) 01/28/21 18:11 Creatinine 1.33 mg/dL (0.70-1.30) H 01/28/21 18:11 Est GFR (MDRD) Af Amer > 60 (>60) 01/28/21 18:11 Est GFR (MDRD) Non-Af 59 (>60) 01/28/21 18:11 Glucose 314 mg/dL (65-99) H 01/28/21 18:11 Calcium 9.8 mg/dL (8.5-10.1) 01/28/21 18:11 Corrected Calcium TNP 01/28/21 18:11 Total Bilirubin 0.70 mg/dL (0.2-1.0) 01/28/21 18:11 AST 342 Units/L (15-37) H 01/28/21 18:11 ALT 69 Units/L (12-78) 01/28/21 18:11 Alkaline Phosphatase 122 Units/L (46-116) H 01/28/21 18:11 Total Protein 8.2 g/dL (6.4-8.2) 01/28/21 18:11 Albumin 3.9 g/dL (3.4-5.0) 01/28/21 18:11 Globulin 4.3 g/dL (2.5-4.5) 01/28/21 18:11 Albumin/Globulin Ratio 0.9 Ratio (1.1-2.1) L 01/28/21 18:11 Amylase 38 Units/L (25-115) 01/28/21 18:11 Lipase 61 Units/L (73-393) L 01/28/21 18:11 Specimen Type Clean catch urine 01/28/21 19:46 Urine Color Yellow (YELLOW) 01/28/21 19:46 Urine Appearance Hazy (CLEAR) 01/28/21 19:46 Urine pH 5.0 (5.0 - 8.0) 01/28/21 19:46 Ur Specific Mcclure 1.015 (1.000-1.030) 01/28/21 19:46 Urine Protein 2+ (NEGATIVE) 01/28/21 19:46 Urine Glucose (UA) 4+ (NEGATIVE) 01/28/21 19:46 Urine Ketones Negative (NEGATIVE) 01/28/21 19:46 Urine Occult Blood 3+ (NEGATIVE) 01/28/21 19:46 Urine Nitrite Negative (NEGATIVE) 01/28/21 19:46 Urine Bilirubin Negative (NEGATIVE) 01/28/21 19:46 Urine Urobilinogen Normal (NORMAL) 01/28/21 19:46 Ur Leukocyte Esterase 3+ (NEGATIVE) 01/28/21 19:46 Urine RBC 0-2 /HPF (0-3) 01/28/21 19:46 Urine WBC Tntc /HPF (0-5) A 01/28/21 19:46 Ur Squamous Epith Cells Rare /HPF (NEGATIVE) 01/28/21 19:46 Urine Bacteria 3+ /HPF (NEGATIVE) 01/28/21 19:46 Ur Culture Indicated? Yes/culture set up 01/28/21 19:46 <Lluvia Lawrence - Last Filed: 01/29/21 04:23> Labs Reviewed Laboratory Results Reviewed?: Yes Laboratory: WBC 17.3 X10^3/uL (3.6-10.0) H 01/28/21 18:11 RBC 4.42 X10^6/uL (4.7-6.0) L 01/28/21 18:11 Hgb 12.6 g/dL (13.5-18.0) L 01/28/21 18:11 Hct 37.4 % (42.0-54.0) L 01/28/21 18:11 MCV 84.5 fL (80.0-100.0) 01/28/21 18:11 MCH 28.4 pg (27.0-34.0) 01/28/21 18:11 MCHC 33.7 g/dL (33.0-35.0) 01/28/21 18:11 RDW 14.5 % (11.6-16.5) 01/28/21 18:11 Plt Count 184 X10^3/uL (150.0-450.0) 01/28/21 18:11 MPV 9.8 fL (7.4-11.0) 01/28/21 18:11 Neut % (Auto) 85.5 % (42.0-75.0) H 01/28/21 18:11 Lymph % (Auto) 6.2 % (21.0-51.0) L 01/28/21 18:11 [place] % (Auto) 8.1 % (0.0-13.0) 01/28/21 18:11 Eos % (Auto) 0.0 % (0.9-2.9) L 01/28/21 18:11 Baso % (Auto) 0.2 % (0.2-1.0) 01/28/21 18:11 Neut # (Auto) 14.8 x10^3/uL (2.2-4.8) H 01/28/21 18:11 Lymph # (Auto) 1.1 X10^3/uL (1.3-2.9) L 01/28/21 18:11 [place] # (Auto) 1.4 x10^3/uL (0.3-0.8) H 01/28/21 18:11 Eos # (Auto) 0.0 x10^3/uL (0.0-0.2) 01/28/21 18:11 Baso # (Auto) 0.0 X10^3/uL (0.0-0.1) 01/28/21 18:11 Absolute Nucleated RBC 0.1 /100WBC 01/28/21 18:11 Sodium 135 mmol/L (136-145) L 01/28/21 18:11 Corrected Sodium 140 mmol/L (136-145) 01/28/21 18:11 Potassium 4.3 mmol/L (3.5-5.1) 01/28/21 18:11 Chloride 99 mmol/L (98-107) 01/28/21 18:11 Carbon Dioxide 26.7 mmol/L (21-32) 01/28/21 18:11 BUN 15 mg/dL (7-18) 01/28/21 18:11 Creatinine 1.33 mg/dL (0.70-1.30) H 01/28/21 18:11 Est GFR (MDRD) Af Amer > 60 (>60) 01/28/21 18:11 Est GFR (MDRD) Non-Af 59 (>60) 01/28/21 18:11 Glucose 314 mg/dL (65-99) H 01/28/21 18:11 Calcium 9.8 mg/dL (8.5-10.1) 01/28/21 18:11 Corrected Calcium TNP 01/28/21 18:11 Total Bilirubin 0.70 mg/dL (0.2-1.0) 01/28/21 18:11 AST 342 Units/L (15-37) H 01/28/21 18:11 ALT 69 Units/L (12-78) 01/28/21 18:11 Alkaline Phosphatase 122 Units/L (46-116) H 01/28/21 18:11 Total Protein 8.2 g/dL (6.4-8.2) 01/28/21 18:11 Albumin 3.9 g/dL (3.4-5.0) 01/28/21 18:11 Globulin 4.3 g/dL (2.5-4.5) 01/28/21 18:11 Albumin/Globulin Ratio 0.9 Ratio (1.1-2.1) L 01/28/21 18:11 Amylase 38 Units/L (25-115) 01/28/21 18:11 Lipase 61 Units/L (73-393) L 01/28/21 18:11 Specimen Type Clean catch urine 01/28/21 19:46 Urine Color Yellow (YELLOW) 01/28/21 19:46 Urine Appearance Hazy (CLEAR) 01/28/21 19:46 Urine pH 5.0 (5.0 - 8.0) 01/28/21 19:46 Ur Specific Mcclure 1.015 (1.000-1.030) 01/28/21 19:46 Urine Protein 2+ (NEGATIVE) 01/28/21 19:46 Urine Glucose (UA) 4+ (NEGATIVE) 01/28/21 19:46 Urine Ketones Negative (NEGATIVE) 01/28/21 19:46 Urine Occult Blood 3+ (NEGATIVE) 01/28/21 19:46 Urine Nitrite Negative (NEGATIVE) 01/28/21 19:46 Urine Bilirubin Negative (NEGATIVE) 01/28/21 19:46 Urine Urobilinogen Normal (NORMAL) 01/28/21 19:46 Ur Leukocyte Esterase 3+ (NEGATIVE) 01/28/21 19:46 Urine RBC 0-2 /HPF (0-3) 01/28/21 19:46 Urine WBC Tntc /HPF (0-5) A 01/28/21 19:46 Ur Squamous Epith Cells Rare /HPF (NEGATIVE) 01/28/21 19:46 Urine Bacteria 3+ /HPF (NEGATIVE) 01/28/21 19:46 Ur Culture Indicated? Yes/culture set up 01/28/21 19:46 XRAY XRAY Interpreted by: Radiologist X-ray Results: abd xr: 1.No acute cardiopulmonary disease. 2.No evidence for acute abdominal pathology. Opioid <JOSHUA YOUNG - Last Filed: 01/28/21 19:33> Opioid Risk Tool Age (Paolo box if 16-45): No History of Preadolescent Sexual Abuse: No Total: 0 Total Score Risk Category: Low Risk Copyright: Jonathan ESTES predicting aberrant behaviors <Lluiva Lawrence - Last Filed: 01/29/21 04:23> Opioid Risk Tool Total: 0 Total Score Risk Category: Low Risk <JOSHUA YOUNG - Last Filed: 01/28/21 19:33> Diagnosis Discharge Problem: Acute UTI, Nausea and vomiting in adult patient Leukocytosis Qualifiers: Leukocytosis type: lymphocytosis Qualified Code(s): D72.820 - Lymphocytosis (symptomatic) Instructions Forms: [facility] Patient Portal Social Distancing
[2021-01-28] MEDS ORDERED: NS 1000 ML 1,000 ML IV ONE (18:03)
[2021-01-28] MEDS ORDERED: ZOFRAN INJ 4 MG VIAL IVP ONE ×2 (18:03→20:59)
[2021-01-28] MEDS ORDERED: NS 1000 ML 1,000 ML ONE ×2 (18:06→22:39)
[2021-01-28] MEDS ORDERED: ZOFRAN INJ 4 MG VIAL ONE ×2 (18:06→21:02)
[2021-01-28 18:24] LABS: BASOPHILS % (AUTO) 0.2 % (0.2-1.0); HEMATOCRIT 37.4 % (42.0-54.0); HEMOGLOBIN 12.6 g/dL (13.5-18.0); LYMPHOCYTES # (AUTO) 1.1 X10^3/uL (1.3-2.9); LYMPHOCYTES % (AUTO) 6.2 % (21.0-51.0); MEAN CORPUSCULAR HEMOGLOBIN 28.4 pg (27.0-34.0); MEAN CORPUSCULAR HGB CONC 33.7 g/dL (33.0-35.0); MEAN CORPUSCULAR VOLUME 84.5 fL (80.0-100.0); MEAN PLATELET VOLUME 9.8 fL (7.4-11.0); MONOCYTES # (AUTO) 1.4 x10^3/uL (0.3-0.8); MONOCYTES % (AUTO) 8.1 % (0.0-13.0); NEUTROPHILS # (AUTO) 14.8 x10^3/uL (2.2-4.8); NEUTROPHILS % (AUTO) 85.5 % (42.0-75.0); PLATELET COUNT 184 X10^3/uL (150.0-450.0); RED BLOOD COUNT 4.42 X10^6/uL (4.7-6.0); RED CELL DISTRIBUTION WIDTH 14.5 % (11.6-16.5); WHITE BLOOD COUNT 17.3 X10^3/uL (3.6-10.0)
--- NOTE | 2021-01-28 18:38 | RAD ---
ACUTE ABDOMEN SERIESHISTORY:VomitingStudy: Frontal view of the chest, flat and upright views of the abdomenComparison:NoneFindings:Cardiomediastinal silhouette is normal in size .No focal consolidations, pleural effusions or pneumothorax.Flat and upright views of the abdomen demonstrates a normal bowel gas pattern.No free air..No abnormal calcifications or abnormal soft tissue shadows. No acute bony abnormalities.IMPRESSION:1.No acute cardiopulmonary disease.2.No evidence for acute abdominal pathology.Electronically signed by: CHARLES SANDOVAL (Jan 28, 2021 18:36:22)
[2021-01-28 18:45] LABS: ALANINE AMINOTRANSFERASE 69 Units/L (12-78); ALBUMIN 3.9 g/dL (3.4-5.0); ALKALINE PHOSPHATASE 122 Units/L (46-116); AMYLASE 38 Units/L (25-115); ASPARTATE AMINO TRANSFERASE 342 Units/L (15-37); BLOOD UREA NITROGEN 15 mg/dL (7-18); CALCIUM 9.8 mg/dL (8.5-10.1); CARBON DIOXIDE 26.7 mmol/L (21-32); CHLORIDE 99 mmol/L (98-107); COR NA(FOR HYPERGLY) 140 mmol/L (136-145); CREATININE 1.33 mg/dL (0.70-1.30); LIPASE 61 Units/L (73-393); SODIUM 135 mmol/L (136-145); TOTAL PROTEIN 8.2 g/dL (6.4-8.2); eGFR NON BLACK RACES 59 (>60)
[2021-01-28 20:25] LABS: BILIRUBIN,URINE NEGATIVE (NEGATIVE); BLOOD/HEMOGLOBIN,URINE 3+ (NEGATIVE); GLUCOSE, URINE 4+ (NEGATIVE); KETONES,URINE NEGATIVE (NEGATIVE); LEUKOCYTE ESTERASE ,URINE 3+ (NEGATIVE); NITRITES,URINE NEGATIVE (NEGATIVE); PROTEIN,URINE 2+ (NEGATIVE); UROBILINOGEN,URINE NORMAL (NORMAL)
[2021-01-28 20:44] LABS: APPEARANCE,URINE HAZY (CLEAR); BACTERIA,URINE 3+ /HPF (NEGATIVE); COLOR,URINE YELLOW (YELLOW); RBC,URINE 0-2 /HPF (0-3); SQUAMOUS EPITHELIAL CELL,UR RARE /HPF (NEGATIVE)
[2021-01-28] MEDS ORDERED: ROCEPHIN 1 GRAM IV PREMIX 1 G/50 ML IV.SOLN. IV ONE ×2 (20:46→20:50)
[2021-01-28] MEDS ORDERED: NS 100 ML IV 100 ML ONE (20:51)
[2021-01-28] MEDS ORDERED: ZOFRAN TAB 4 MG PO PRN (22:26)
[2021-01-28] MEDS: ROCEPHIN VIAL 1 GRAM 1 G in NS 100 ML IV + SPIKE MINIBAG* 100 ML IV SCH (22:39)
[2021-01-28] MEDS: NS 1000 ML 1,000 ML IV SCH (22:40)
[2021-01-29 01:27] VITALS: BMI 21.1
[2021-01-29 04:23] LABS: BASOPHILS % (AUTO) 0.2 % (0.2-1.0); HEMATOCRIT 35.8 % (42.0-54.0); HEMOGLOBIN 12.2 g/dL (13.5-18.0); LYMPHOCYTES # (AUTO) 1.2 X10^3/uL (1.3-2.9); LYMPHOCYTES % (AUTO) 6.1 % (21.0-51.0); MEAN CORPUSCULAR HEMOGLOBIN 28.5 pg (27.0-34.0); MEAN CORPUSCULAR VOLUME 83.9 fL (80.0-100.0); MONOCYTES # (AUTO) 1.5 x10^3/uL (0.3-0.8); MONOCYTES % (AUTO) 7.7 % (0.0-13.0); NEUTROPHILS # (AUTO) 16.7 x10^3/uL (2.2-4.8); PLATELET COUNT 171 X10^3/uL (150.0-450.0); RED BLOOD COUNT 4.27 X10^6/uL (4.7-6.0); RED CELL DISTRIBUTION WIDTH 14.7 % (11.6-16.5); WHITE BLOOD COUNT 19.4 X10^3/uL (3.6-10.0)
[2021-01-29 04:47] LABS: ALANINE AMINOTRANSFERASE 55 Units/L (12-78); ALBUMIN 3.3 g/dL (3.4-5.0); ALKALINE PHOSPHATASE 104 Units/L (46-116); BLOOD UREA NITROGEN 15 mg/dL (7-18); CALCIUM 9.1 mg/dL (8.5-10.1); CARBON DIOXIDE 24.8 mmol/L (21-32); CHLORIDE 104 mmol/L (98-107); COR CA(FOR HYPOALB) 9.7 mg/dL (8.5-10.1); COR NA(FOR HYPERGLY) 144 mmol/L (136-145); CREATININE 1.05 mg/dL (0.70-1.30); SODIUM 141 mmol/L (136-145); TOTAL PROTEIN 7.1 g/dL (6.4-8.2); eGFR NON BLACK RACES > 60 (>60)
[2021-01-29 05:29] LABS: ASPARTATE AMINO TRANSFERASE 243 Units/L (15-37)
[2021-01-29] MEDS ORDERED: HumuLIN R SUBCUT PRN (05:40)
--- NOTE | 2021-01-29 07:13 | RAD ---
HISTORYSOB, LOW OXYGEN SATURATIONSTUDYCHEST, 1 [id number]/10/2021.TECHNIQUEAP view of the chestFINDINGSCardiac and mediastinal contours are within normal limits. Bilateral airspace opacities particularly in the perihilar and infrahilar lung. No pleural effusion or pneumothorax.IMPRESSIONBilateral central distribution of airspace opacities may represent pulmonary edema or pneumonia.Electronically signed by: Apollo Wright (Jan 29, 2021 07:11:18)
[2021-01-29] MEDS: NS 1000 ML 1,000 ML IV SCH ×2 (09:11→15:00)
[2021-01-29] MEDS: ROCEPHIN VIAL 1 GRAM 1 G in NS 100 ML IV + SPIKE MINIBAG* 100 ML IV SCH (09:12)
[2021-01-29] MEDS ORDERED: ZITHROMAX INJ 500 MG VIAL 500 MG in NS 250 ML IV 250 ML IV SCH (10:12)
[2021-01-29] MEDS ORDERED: XOPENEX 1.25 MG/3 ML NEBULE NEB PRN (10:17)
[2021-01-29] MEDS ORDERED: INVANZ INJ 1 GM VIAL 1 GM in NS 100 ML IV + SPIKE MINIBAG* 100 ML IV SCH (11:00)
[2021-01-29 11:17] LABS: ABG BASE EXCESS 0.2 mmol/L (-2.0-2.0); ABG HCO3 23.5 mmol/L (22-26)
[2021-01-29 11:18] LABS: ABG ALLEN TEST POS
[2021-01-29] MEDS ORDERED: LASIX IVP ONE (11:51)
[2021-01-29] MEDS ORDERED: XOPENEX 1.25 MG/3 ML NEBULE NEB SCH (12:00)
[2021-01-29] MEDS ORDERED: ASPIRIN 81 MG CHEWTAB PO ONE (14:05)
[2021-01-29] MEDS ORDERED: ASPIRIN 81 MG CHEWTAB ONE (14:06)
[2021-01-29] MEDS ORDERED: PLAVIX ONE (14:08)
[2021-01-29] MEDS ORDERED: HEPARIN SODIUM INJ 5000 UNITS IVP ONE (14:35)
[2021-01-29] MEDS ORDERED: HEPARIN SODIUM IN D5W 25,000 UNITS/500 ML BAG IV PRN (14:38)
[2021-01-29] MEDS ORDERED: PLAVIX PO SCH (15:00)
[2021-01-29 15:07] LABS: CKMB % 5.4 % (<4)
[2021-01-29 15:08] LABS: CREATINE KINASE MB 46.1 ng/mL (0-4.0); TROPONIN I 24.46 ng/mL (0-1.5)
[2021-01-29] MEDS ORDERED: LOPRESSOR TAB 25 MG PO SCH (15:19)
[2021-01-29] MEDS ORDERED: LOPRESSOR TAB 25 MG ONE (15:24)
[2021-01-29 16:04] LABS: CKMB % 5.9 % (<4)
[2021-01-29 16:05] LABS: CREATINE KINASE MB 77.9 ng/mL (0-4.0); TROPONIN I 32.4 ng/mL (0-1.5)
[2021-01-29] MEDS ORDERED: NS 500 ML IV 500 ML IV ONE ×2 (16:30→17:00)
--- NOTE | 2021-01-29 17:09 | DR.H&P ---
H&P - History & Physical for Day of: H&P Date: 01/28/21 - Chief Complaint Chief Complaint: Nausea and vomiting - History of Present Illness History of Present Illness: Patient is a 60 year old white male who is being admitted due to nausea and vomiting. Patient reports he has been experiencing nausea with projectile vomiting x 1 days. Denies abdominal pain. Reports last BM was several days ago. Deneis fever, chills, SOB, or any other concerns at present. PMH HTN, CVA in 2019. Denies smoking or alcohol consumption. Does report dipping. - Past Medical History Past Medical History: Hypertension, Diabetes, CVA - Past Surgical History Surgical History: Appendectomy - Family History Family Medical History: Diabetes Mellitus, Hypertension - Social History Does patient currently use any type of tobacco product: Yes Have you used tobacco products in the last 12 months: Yes Type of Tobacco Use: Smokeless How many years tobacco product used: 50 Does any household member use tobacco: No Alcohol Use: None Drug Use: None - Medications Home Medications: shellfish derived Allergy (Verified 03/04/20 07:23) CONTINUE taking the following medications aspirin 81 mg PO DAILY 01/29/21 [History] - Review of Systems Constitutional: See HPI Eyes: See HPI ENT: See HPI Respiratory: See HPI Cardiovascular: See HPI Gastrointestinal: See HPI Genitourinary: See HPI Musculoskeletal: See HPI Skin: See HPI Neurological: See HPI - Physical Exam Vital Signs: Temperature 98.2 F Pulse Rate [Radial] 93 Pulse Rate 123 Respiratory Rate 20 Blood Pressure [Left Arm] 71/52 Blood Pressure [Right Arm] 131/65 Blood Pressure 99/64 O2 Sat by Pulse Oximetry 100 Oriented: Normal, Time, Person, Place Eyes: Normal Ear: Normal Nose: Normal Throat: Normal Respiratory: Diminished Throughout, Rhonchi Throughout Cardiovascular: Tachycardia : Normal Auscultation: Bowel Sounds: Normal Palpation: Normal Tenderness: Normal Skin: Normal Musculoskeletal: Normal Psychiatric: Normal Mood Description: Calm Affect: Normal Speech Pattern: Clear, Appropriate - Assessment/Plan (1) Leukocytosis Qualifiers: Leukocytosis type: lymphocytosis Qualified Code(s): D72.820 - Lymphocytosis (symptomatic) Status: Acute Plan: IV abx, IV fluids, Cultures pending, Repeat labs in am (2) Nausea and vomiting in adult patient Status: Acute (3) Diabetes Status: Acute - Allergies Allergies/Adverse Reactions: Allergies Allergy/AdvReac Type Severity Reaction Status Date / Time shellfish derived Allergy Verified 03/04/20 07:23
[2021-01-29 17:29] VITALS: BP 81/54
[2021-01-29] MEDS ORDERED: SNACK - Diabetic Appropriate PO SCH (20:00)
[2021-01-29] MEDS ORDERED: LIPITOR TAB 20 MG PO SCH (21:00)
[2021-01-30] MEDS ORDERED: ASPIRIN EC 81 MG PO SCH (09:00)
== END 2021-01-29 17:30 | disposition short-term general hospital (02) | DRG 392 ==
LOC: MED/SURG 17:39 → ER 17:39 → OBSVTOIN 22:25 → MED/SURG 01-29 00:38 → ICU 01-29 14:35
PROVIDERS: ADMIT Internal Medicine; ATTEND Internal Medicine
DX: I10 Essential (primary) hypertension; R94.31 Abnormal electrocardiogram [ECG] [EKG]; R26.89 Other abnormalities of gait and mobility; N39.0 Urinary tract infection, site not specified; R06.02 Shortness of breath; E86.0 Dehydration; B96.29 Other Escherichia coli [E. coli] as the cause of diseases classified elsewhere; R11.2 Nausea with vomiting, unspecified; Z20.822 Contact with and (suspected) exposure to COVID-19; E11.65 Type 2 diabetes mellitus with hyperglycemia

== ENCOUNTER 2024-09-15 12:25 | Inpatient (IN) ==
[2024-09-15] MEDS: APRESOLINE INJ 20 MG VIAL IVP ONE ×2 (13:05→18:20)
[2024-09-15 13:24] LABS: BASOPHILS % (AUTO) 0.5 % (0.2-1.0); EOSINOPHILS # (AUTO) 0.1 x10^3/uL (0.0-0.2); HEMATOCRIT 43.3 % (42.0-54.0); HEMOGLOBIN 14.2 g/dL (13.5-18.0); LYMPHOCYTES # (AUTO) 1.1 X10^3/uL (1.3-2.9); LYMPHOCYTES % (AUTO) 14.7 % (21.0-51.0); MEAN CORPUSCULAR HGB CONC 32.9 g/dL (33.0-35.0); MEAN PLATELET VOLUME 11.3 fL (7.4-11.0); MONOCYTES # (AUTO) 0.5 x10^3/uL (0.3-0.8); NEUTROPHILS # (AUTO) 5.8 x10^3/uL (2.2-4.8); NEUTROPHILS % (AUTO) 76.8 % (42.0-75.0); PLATELET COUNT 106 X10^3/uL (150.0-450.0); RED BLOOD COUNT 5.09 X10^6/uL (4.7-6.0); RED CELL DISTRIBUTION WIDTH 18.2 % (11.6-16.5); WHITE BLOOD COUNT 7.5 X10^3/uL (3.6-10.0)
--- NOTE | 2024-09-15 13:27 | DR.HTN ---
HPI Time Seen Time Seen by Provider: 09/15/24 13:26 Primary Care Physician Primary Care Physician: Samm RIDDLE Complaints Chief Complaint Doctors Comments: Patient states he has had some swelling of his left arm and left leg over the last 3 to 4 days. He has had a stroke he does have left-sided weakness. The patient has not seen a primary care provider in years he states he does have a history of hypertension but he has not taken any medication for that. Chief Complaint:: Patient states that his left leg and left arm started swelling 3 or 4 days ago. He states that he previously had a stroke on that side and has weakness in both since the stroke. He states that both his left arm and left leg feels like it is sunburned. COVID-19 Coronavirus risk:travel/contact w/high risk person: No Has patient experienced Coronavirus symptoms: No Source History Provided: Patient and Family Member Mode of Arrival Mode of Arrival: Wheelchair Timing Onset of Chief Complaint: 09/12/24 Severity What was the maximum recorded B/P?: 179/111 Context Treatment of HTN Prior to Arrival: No Rx for HTN meds and Noncompliant Associated Signs and Symptoms HTN Associated Signs and Symptoms: Shortness of Breath PMH PMH Past Medical History: Yes Past Medical History: CHF, Coronary Artery Disease, Diabetes, Hypertension and [place] Past Surgical History: Yes Surgical History: Angioplasty/Stents and Appendectomy Past Surgical History Comment: Pace maker placement Family History History of Family Medical Conditions: Yes Family Medical History: Diabetes Mellitus and Hypertension Social History Does patient currently use any type of tobacco product: Yes Have you used tobacco products in the last 12 months: Yes Type of Tobacco Use: Smokeless Does any household member use tobacco: Yes Alcohol Use: Occasionally Do you use any recreational Drugs:: No Lives Where: Home Travel Risk Coronavirus risk:travel/contact w/high risk person: No Has patient experienced Coronavirus symptoms: No Infectious screening In the last 2 months have you had wt loss of >10#?: NO Have you had fever, night sweats or hemotysis?: No Have you traveled outside the country in the last 6 months?: No Isolation: Standard ROS Review of Systems Constitutional: Other (swelling of left leg and arm) Eyes: No Symptoms Reported ENTM: No Symptoms Reported Respiratoy: Short of Breath Cardiovascular: No Symptoms Reported Gastrointestinal/Abdominal: No Symptoms Reported Genitourinary: No Symptoms Reported Neurological: No Symptoms Reported Musculoskeletal: No Symptoms Reported Integumentary: Other (swelling of left arm and leg) Endocrine: No Symptoms Reported Psychiatric: No Symptoms Reported PE Vital Signs Vitals: Vital Signs Temperature 98.3 F Temperature 98.3 F Temperature 98.3 F Pulse Rate 116 Respiratory Rate 20 Respiratory Rate 20 Respiratory Rate 18 Blood Pressure [Left Arm] 179/11 Blood Pressure [Left Arm] 155/98 Blood Pressure [Left Arm] 169/95 Blood Pressure [Left Arm] 173/119 Blood Pressure 177/103 Blood Pressure 165/118 O2 Sat by Pulse Oximetry 98 O2 Sat by Pulse Oximetry 98 O2 Sat by Pulse Oximetry 97 General Limitations: No Limitations and Physical Limitation (antalgic gait due to left side weakness) General Appearance: In Distress (mild distress) Head Head Exam: Normal Inspection, Atraumatic and Normocephalic Eyes Eye exam: Normal Appearance Pupils: Regular, Round: Bilateral Sclera/Conjunctival: Normal Inspection: Bilateral ENT ENT Exam: Normal Exam, Normal Oropharynx and Normal External Ear Exam Neck Neck Exam: Normal Inspection, Full ROM and Trachea Midline Chest Chest Inspection: Normal Inspection and Symmetric Chest Wall Rise Respiratory Respiratory Exam: Normal Lung Sounds Bilat Cardiovascular Cardiovascular Exam: Regular Rate Abdominal Exam Abdominal Exam: Normal Inspection Extremities Extremities Exam: Tenderness (left arm and leg) Back Back Exam: Normal Inspection Neurologic Neurological Exam: Alert, Oriented X3 and CN II-XII Intact Patient Oriented To: Person and Place Speech: Fluid Speech Motor Strength - LUE: 3/5 Motor Strength - RUE: 4/5 Motor Strength - LLE: 3/5 Motor Strength - RLE: 4/5 Skin Skin Exam: Warm, Intact and Erythema (left upper arm/lower leg) MDM Differential Diagnosis Differential Diagnosis: CHF, Hyertension, essential and Pulmonary edema Differential Diagnosis Comment: cellulitis COURSE Treatment Treatment: Patient remained relatively stable during ER evaluation. We did do a chest x-ray on the patient show cardiomegaly with some elevation of the left hemidiaphragm. There also was suggestion of some heart failure. The patient also had a pacemaker. Patient had a metabolic panel and the potassium was low at 3.3 and blood sugar was 152. The patient had CBC that was normal had a D- dimer and it was 2.46 and since the patient had a pacemaker we did not do a CTA of the chest because he was allergic to shellfish. Patient had a lactic acid level that was 2.7 and initially we checked it about 2 hours later and was 1.0. The patient was given Zosyn 3.375 mg IV here in the ER and had blood cultures x 2 done. We did speak to the on-call physician Dr. Prince 1700 and let him know that we had already given the patient 600 of Lasix since his BNP was 1500. And he told him about the elevated D-dimer and we did not do a CTA of the chest because he had an allergy to shellfish. The patient was admitted for CHF elevation in his D-dimer. Also has some cellulitic changes which he was given Zosyn 3.375 mg and will be given Zosyn 3.375 mg IV every 8 hours. The patient was advised of the intent to admit and eventually was agreeable to the admission. ROR Labs Reviewed Laboratory Results Reviewed?: Yes 09/15/24 12:50 09/15/24 12:50 Laboratory: WBC 7.5 X10^3/uL (3.6-10.0) 09/15/24 12:50 RBC 5.09 X10^6/uL (4.7-6.0) 09/15/24 12:50 Hgb 14.2 g/dL (13.5-18.0) 09/15/24 12:50 Hct 43.3 % (42.0-54.0) 09/15/24 12:50 MCV 85.0 fL (80.0-100.0) 09/15/24 12:50 MCH 28.0 pg (27.0-34.0) 09/15/24 12:50 MCHC 32.9 g/dL (33.0-35.0) L 09/15/24 12:50 RDW 18.2 % (11.6-16.5) H 09/15/24 12:50 Plt Count 106 X10^3/uL (150.0-450.0) L 09/15/24 12:50 MPV 11.3 fL (7.4-11.0) H 09/15/24 12:50 Neut % (Auto) 76.8 % (42.0-75.0) H 09/15/24 12:50 Lymph % (Auto) 14.7 % (21.0-51.0) L 09/15/24 12:50 [place] % (Auto) 7.0 % (0.0-13.0) 09/15/24 12:50 Eos % (Auto) 1.0 % (0.9-2.9) 09/15/24 12:50 Baso % (Auto) 0.5 % (0.2-1.0) 09/15/24 12:50 Neut # (Auto) 5.8 x10^3/uL (2.2-4.8) H 09/15/24 12:50 Lymph # (Auto) 1.1 X10^3/uL (1.3-2.9) L 09/15/24 12:50 [place] # (Auto) 0.5 x10^3/uL (0.3-0.8) 09/15/24 12:50 Eos # (Auto) 0.1 x10^3/uL (0.0-0.2) 09/15/24 12:50 Baso # (Auto) 0.0 X10^3/uL (0.0-0.1) 09/15/24 12:50 Absolute Nucleated RBC 0.1 /100WBC 09/15/24 12:50 D-Dimer 2.46 ug/ml (0.0-0.57) H 09/15/24 12:50 Sodium 139 mmol/L (136-145) 09/15/24 12:50 Corrected Sodium 140 mmol/L (136-145) 09/15/24 12:50 Potassium 3.3 mmol/L (3.5-5.1) L 09/15/24 12:50 Chloride 103 mmol/L (98-107) 09/15/24 12:50 Carbon Dioxide 23.7 mmol/L (21-32) 09/15/24 12:50 BUN 12 mg/dL (7-18) 09/15/24 12:50 Creatinine 1.19 mg/dL (0.70-1.30) 09/15/24 12:50 Est GFR (MDRD) Af Amer > 60 (>60) 09/15/24 12:50 Est GFR (MDRD) Non-Af > 60 (>60) 09/15/24 12:50 Glucose 152 mg/dL (65-99) H 09/15/24 12:50 Lactic Acid 1.0 mmol/L (0.4-2.0) 09/15/24 14:58 Calcium 9.2 mg/dL (8.5-10.1) 09/15/24 12:50 Corrected Calcium TNP 09/15/24 12:50 Total Bilirubin 1.90 mg/dL (0.2-1.0) H 09/15/24 12:50 AST 18 Units/L (15-37) 09/15/24 12:50 ALT 21 Units/L (12-78) 09/15/24 12:50 Alkaline Phosphatase 143 Units/L (46-116) H 09/15/24 12:50 B-Natriuretic Peptide 1560 pg/mL (0-79) H 09/15/24 12:50 Total Protein 7.0 g/dL (6.4-8.2) 09/15/24 12:50 Albumin 3.7 g/dL (3.4-5.0) 09/15/24 12:50 Globulin 3.3 g/dL (2.5-4.5) 09/15/24 12:50 Albumin/Globulin Ratio 1.1 Ratio (1.1-2.1) 09/15/24 12:50 Specimen Type Clean catch urine 09/15/24 16:19 Urine Color Yellow (YELLOW) 09/15/24 16:19 Urine Appearance Clear (CLEAR) 09/15/24 16:19 Urine pH 6.0 (5.0 - 8.0) 09/15/24 16:19 Ur Specific [place] 1.015 (1.000-1.030) 09/15/24 16:19 Urine Protein 2+ (NEGATIVE) 09/15/24 16:19 Urine Glucose (UA) Negative (NEGATIVE) 09/15/24 16:19 Urine Ketones Negative (NEGATIVE) 09/15/24 16:19 Urine Blood Negative (NEGATIVE) 09/15/24 16:19 Urine Nitrite Negative (NEGATIVE) 09/15/24 16:19 Urine Bilirubin Negative (NEGATIVE) 09/15/24 16:19 Urine Urobilinogen Normal (NORMAL) 09/15/24 16:19 Ur Leukocyte Esterase Negative (NEGATIVE) 09/15/24 16:19 Urine RBC None seen /HPF (0-3) 09/15/24 16:19 Urine WBC None seen /HPF (0-5) 09/15/24 16:19 Ur Squamous Epith Cells Rare /HPF (NEGATIVE) 09/15/24 16:19 Urine Bacteria Negative /HPF (NEGATIVE) 09/15/24 16:19 Ur Culture Indicated? No/not indicated 09/15/24 16:19 Opioid Opioid Risk Tool Age (Paolo box if 16-45): No History of Preadolescent Sexual Abuse: No Total: 0 Total Score Risk Category: Low Risk Copyright: Jonathan ESTES predicting aberrant behaviors Discharge Plan Diagnosis Discharge Problem: CHF (congestive heart failure), D-dimer, elevated, Cellulitis Discharge Plan Patient Disposition: ADMITTED INPATIENT Condition: Stable Prescriptions: No Action NK Health Concerns: Post Hospitalization: new medications and changes needed to prevent readmission or further decline. Pt educated and given instructions on all concerns. Plan of Treatment: Continue with present treatment and follow up plan. Pt is to keep follow up appointment as instructed and take medications as ordered. Orders to Discharge Patient Discharge Orders: Transfer (Routine); Ordered 09/15/24 Ordered By: Todd Dozier Follow ups/Referrals Follow ups/Referrals: JEROD ESPINOSA [Primary Care Provider, MEDICAL] - 3 days Instructions Stand Alone Forms: Find Help Web Site, Post Hospital Follow Up Care Print Language: GRENADIAN
[2024-09-15 13:29] LABS: ALANINE AMINOTRANSFERASE 21 Units/L (12-78); ALBUMIN 3.7 g/dL (3.4-5.0); ALKALINE PHOSPHATASE 143 Units/L (46-116); ASPARTATE AMINO TRANSFERASE 18 Units/L (15-37); BLOOD UREA NITROGEN 12 mg/dL (7-18); CALCIUM 9.2 mg/dL (8.5-10.1); CARBON DIOXIDE 23.7 mmol/L (21-32); CHLORIDE 103 mmol/L (98-107); COR NA(FOR HYPERGLY) 140 mmol/L (136-145); CREATININE 1.19 mg/dL (0.70-1.30); GLUCOSE 152 mg/dL (65-99); POTASSIUM 3.3 mmol/L (3.5-5.1); SODIUM 139 mmol/L (136-145); eGFR NON BLACK RACES > 60 (>60)
[2024-09-15] MEDS: NS 1,000 ML IV 1,000 ML IV ONE (14:20)
[2024-09-15] MEDS: ZOSYN VIAL 3.375 GRAMS 3.375 G in NS 100 ML IV 100 ML IV ONE (14:31)
--- NOTE | 2024-09-15 14:32 | RAD ---
EXAM: CHEST, 1 VIEW HISTORY: sob; COMPARISON: Prior study or studies were utilized for comparison during interpretation with the most relevant dated 01/29/2021 TECHNIQUE: CHEST, 1 VIEW FINDINGS: Chest: Lines and tubes: Left-sided pacemaker generator with lead or leads in satisfactory position. Mediastinum: Borderline cardiomegaly. Pulmonary vessels: There is pulmonary vascular congestion. Lung mccloud: Patchy opacities are seen Pleura: There is blunting of the left costophrenic angle. No pneumothorax. Bones and soft tissues: No acute osseous or soft tissue abnormality. IMPRESSION: 1. Findings suggest heart failure THIS IS AN ELECTRONICALLY VERIFIED FINAL REPORT 09/15/2024 2:28 PM - Electronically signed by Colin Li MD
[2024-09-15] MEDS: LASIX IVP ONE (15:25)
[2024-09-15 16:45] LABS: BILIRUBIN,URINE NEGATIVE (NEGATIVE); BLOOD/HEMOGLOBIN,URINE NEGATIVE (NEGATIVE); GLUCOSE, URINE NEGATIVE (NEGATIVE); KETONES,URINE NEGATIVE (NEGATIVE); LEUKOCYTE ESTERASE ,URINE NEGATIVE (NEGATIVE); NITRITES,URINE NEGATIVE (NEGATIVE); PROTEIN,URINE 2+ (NEGATIVE); UROBILINOGEN,URINE NORMAL (NORMAL)
[2024-09-15] MEDS: K-DUR TAB 20 MEQ PO ONE (16:45)
[2024-09-15 16:48] LABS: APPEARANCE,URINE CLEAR (CLEAR); COLOR,URINE YELLOW (YELLOW)
[2024-09-15 16:53] LABS: BACTERIA,URINE NEGATIVE /HPF (NEGATIVE); RBC,URINE NONE SEEN /HPF (0-3); SQUAMOUS EPITHELIAL CELL,UR RARE /HPF (NEGATIVE)
[2024-09-15] MEDS: ZOSYN VIAL 2.25 GRAMS 2.25 G in NS 100 ML IV 100 ML IV SCH (18:45)
[2024-09-15] MEDS: NS 1,000 ML IV 1,000 ML ONE (18:45)
[2024-09-15] MEDS: APRESOLINE INJ 20 MG VIAL ONE ×2 (18:45→18:46)
[2024-09-15 20:10] VITALS: BMI 25.6
[2024-09-15] MEDS: NS 250 ML IV 25 ML IV PRN (21:11)
[2024-09-16 05:08] LABS: BASOPHILS % (AUTO) 0.6 % (0.2-1.0); EOSINOPHILS # (AUTO) 0.1 x10^3/uL (0.0-0.2); EOSINOPHILS % (AUTO) 1.4 % (0.9-2.9); HEMATOCRIT 36.2 % (42.0-54.0); HEMOGLOBIN 12.2 g/dL (13.5-18.0); LYMPHOCYTES # (AUTO) 0.8 X10^3/uL (1.3-2.9); LYMPHOCYTES % (AUTO) 12.9 % (21.0-51.0); MEAN CORPUSCULAR HEMOGLOBIN 28.1 pg (27.0-34.0); MEAN CORPUSCULAR HGB CONC 33.7 g/dL (33.0-35.0); MEAN CORPUSCULAR VOLUME 83.4 fL (80.0-100.0); MEAN PLATELET VOLUME 11.6 fL (7.4-11.0); MONOCYTES # (AUTO) 0.5 x10^3/uL (0.3-0.8); MONOCYTES % (AUTO) 7.6 % (0.0-13.0); NEUTROPHILS # (AUTO) 4.8 x10^3/uL (2.2-4.8); NEUTROPHILS % (AUTO) 77.5 % (42.0-75.0); PLATELET COUNT 88 X10^3/uL (150.0-450.0); RED BLOOD COUNT 4.34 X10^6/uL (4.7-6.0); RED CELL DISTRIBUTION WIDTH 17.8 % (11.6-16.5); WHITE BLOOD COUNT 6.2 X10^3/uL (3.6-10.0)
[2024-09-16 05:20] LABS: ALANINE AMINOTRANSFERASE 16 Units/L (12-78); ALBUMIN 3.1 g/dL (3.4-5.0); ALKALINE PHOSPHATASE 128 Units/L (46-116); ASPARTATE AMINO TRANSFERASE 16 Units/L (15-37); BLOOD UREA NITROGEN 12 mg/dL (7-18); CALCIUM 8.6 mg/dL (8.5-10.1); CARBON DIOXIDE 26.1 mmol/L (21-32); CHLORIDE 106 mmol/L (98-107); COR CA(FOR HYPOALB) 9.3 mg/dL (8.5-10.1); COR NA(FOR HYPERGLY) 142 mmol/L (136-145); CREATININE 1.16 mg/dL (0.70-1.30); GLUCOSE 115 mg/dL (65-99); MAGNESIUM 1.6 mg/dL (2.0-2.9); POTASSIUM 3.6 mmol/L (3.5-5.1); SODIUM 142 mmol/L (136-145); TOTAL PROTEIN 5.9 g/dL (6.4-8.2); eGFR NON BLACK RACES > 60 (>60)
[2024-09-16] MEDS ORDERED: CONSULT PHARMACY - POTASSIUM & MAGNESIUM XX SCH (06:00)
[2024-09-16] MEDS: K-DUR TAB 20 MEQ PO SCH ×2 (09:25→09:26)
[2024-09-16] MEDS: MAG-OX TAB PO SCH (09:26)
[2024-09-16] MEDS: LASIX IVP SCH (09:26)
--- NOTE | 2024-09-16 16:51 | DR.H&P ---
H&P History & Physical for Day of: H&P Date: 09/16/24 Chief Complaint Chief Complaint: Swelling History of Present Illness History of Present Illness: Patient brought to the ER by family due to worsening left arm and leg swelling. Does have a history of heart failure with most recent EF remembered by son to be 30 in 2020. Does have a pacemaker. Has a history of CVA affecting his left, nondominant side. Also has a history of coronary stents. Denies chest pain, WEBB, cough, mental status changes, nausea, vomiting, diarrhea, or difficulty urinating. Has had a liter out overnight. Chest x-ray and BMP in the ER were consistent with vascular congestion. Did require O2 overnight but has not needed it during the day. ROS: 12 point ROS negative except as noted in HPI. PE: Well-developed, well-nourished male in no acute distress. Wearing a nasal cannula. Head NCAT, EOMI, hearing intact conversation. Heart regular rate and rhythm with pacemaker in extreme left upper chest wall. Lungs are clear with good air movement and speech is strong. Left-sided extremities with decreased rate and range of motion along with 2+ pitting edema. Some subcutaneous bruising on the left forearm. Mood and affect are appropriate. Past Medical History Past Medical History: CHF, Coronary Artery Disease, CVA, Diabetes, Hypertension and [place] Past Surgical History Surgical History: Angioplasty/Stents, Appendectomy and Carotid Endarterectomy Family History Family Medical History: Cancer, Coronary Artery Disease and Hypertension Social History Does patient currently use any type of tobacco product: Yes Have you used tobacco products in the last 12 months: Yes Type of Tobacco Use: Smokeless How many years tobacco product used: 50 Does any household member use tobacco: Yes Alcohol Use: None Drug Use: None Medications Home Medications: Home Medications Medication Instructions Recorded Confirmed Type NK 09/15/24 09/15/24 History Allergies Allergies Allergy/AdvReac Type Severity Reaction Status Date / Time shellfish derived Allergy Verified 09/15/24 12:43 Labs 09/16/24 04:27 09/16/24 04:27 Labs: Laboratory WBC 6.2 X10^3/uL (3.6-10.0) 09/16/24 04:27 RBC 4.34 X10^6/uL (4.7-6.0) L 09/16/24 04:27 Hgb 12.2 g/dL (13.5-18.0) L D 09/16/24 04:27 Hct 36.2 % (42.0-54.0) L 09/16/24 04:27 MCV 83.4 fL (80.0-100.0) 09/16/24 04:27 MCH 28.1 pg (27.0-34.0) 09/16/24 04: MCHC 33.7 g/dL (33.0-35.0) 09/16/24 04:27 RDW 17.8 % (11.6-16.5) H 09/16/24 04:27 Plt Count 88 X10^3/uL (150.0-450.0) L 09/16/24 04: MPV 11.6 fL (7.4-11.0) H 09/16/24 04:27 Neut % (Auto) 77.5 % (42.0-75.0) H 09/16/24 04:27 Lymph % (Auto) 12.9 % (21.0-51.0) L 09/16/24 04:27 [place] % (Auto) 7.6 % (0.0-13.0) 09/16/24 04:27 Eos % (Auto) 1.4 % (0.9-2.9) 09/16/24 04: Baso % (Auto) 0.6 % (0.2-1.0) 09/16/24 04:27 Neut # (Auto) 4.8 x10^3/uL (2.2-4.8) 09/16/24 04:27 Lymph # (Auto) 0.8 X10^3/uL (1.3-2.9) L 09/16/24 04:27 [place] # (Auto) 0.5 x10^3/uL (0.3-0.8) 09/16/24 04:27 Eos # (Auto) 0.1 x10^3/uL (0.0-0.2) 09/16/24 04:27 Baso # (Auto) 0.0 X10^3/uL (0.0-0.1) 09/16/24 04: Absolute Nucleated RBC 0.1 /100WBC 09/16/24 04:27 D-Dimer 2.46 ug/ml (0.0-0.57) H 09/15/24 12:50 Sodium 142 mmol/L (136-145) 09/16/24 04:27 Corrected Sodium 142 mmol/L (136-145) 09/16/24 04:27 Potassium 3.6 mmol/L (3.5-5.1) 09/16/24 04:27 Chloride 106 mmol/L (98-107) 09/16/24 04:27 Carbon Dioxide 26.1 mmol/L (21-32) 09/16/24 04:27 BUN 12 mg/dL (7-18) 09/16/24 04:27 Creatinine 1.16 mg/dL (0.70-1.30) 09/16/24 04:27 Est GFR (MDRD) Af Amer > 60 (>60) 09/16/24 04:27 Est GFR (MDRD) Non-Af > 60 (>60) 09/16/24 04:27 Glucose 115 mg/dL (65-99) H 09/16/24 04:27 Lactic Acid 1.0 mmol/L (0.4-2.0) 09/15/24 14:58 Calcium 8.6 mg/dL (8.5-10.1) 09/16/24 04:27 Corrected Calcium 9.3 mg/dL (8.5-10.1) 09/16/24 04:27 Magnesium 1.6 mg/dL (2.0-2.9) L 09/16/24 04:27 Total Bilirubin 1.80 mg/dL (0.2-1.0) H 09/16/24 04:27 AST 16 Units/L (15-37) 09/16/24 04:27 ALT 16 Units/L (12-78) 09/16/24 04:27 Alkaline Phosphatase 128 Units/L (46-116) H 09/16/24 04:27 B-Natriuretic Peptide 1460 pg/mL (0-79) H 09/16/24 04:27 Total Protein 5.9 g/dL (6.4-8.2) L 09/16/24 04:27 Albumin 3.1 g/dL (3.4-5.0) L 09/16/24 04:27 Globulin 2.8 g/dL (2.5-4.5) 09/16/24 04:27 Albumin/Globulin Ratio 1.1 Ratio (1.1-2.1) 09/16/24 04:27 Specimen Type Clean catch urine 09/15/24 16:19 Urine Color Yellow (YELLOW) 09/15/24 16:19 Urine Appearance Clear (CLEAR) 09/15/24 16:19 Urine pH 6.0 (5.0 - 8.0) 09/15/24 16:19 Ur Specific [place] 1.015 (1.000-1.030) 09/15/24 16:19 Urine Protein 2+ (NEGATIVE) 09/15/24 16:19 Urine Glucose (UA) Negative (NEGATIVE) 09/15/24 16:19 Urine Ketones Negative (NEGATIVE) 09/15/24 16:19 Urine Blood Negative (NEGATIVE) 09/15/24 16:19 Urine Nitrite Negative (NEGATIVE) 09/15/24 16:19 Urine Bilirubin Negative (NEGATIVE) 09/15/24 16:19 Urine Urobilinogen Normal (NORMAL) 09/15/24 16:19 Ur Leukocyte Esterase Negative (NEGATIVE) 09/15/24 16:19 Urine RBC None seen /HPF (0-3) 09/15/24 16:19 Urine WBC None seen /HPF (0-5) 09/15/24 16:19 Ur Squamous Epith Cells Rare /HPF (NEGATIVE) 09/15/24 16:19 Urine Bacteria Negative /HPF (NEGATIVE) 09/15/24 16:19 Ur Culture Indicated? No/not indicated 09/15/24 16:19 Physical Exam Vital Signs: Vital Signs Temperature 97.6 F Temperature 97.9 F Pulse Rate 88 Pulse Rate 101 Pulse Rate 86 Pulse Rate 84 Pulse Rate 84 Pulse Rate 92 Pulse Rate 87 Pulse Rate 86 Respiratory Rate 21 Respiratory Rate 20 Respiratory Rate 16 Respiratory Rate 16 Respiratory Rate 14 Respiratory Rate 24 Respiratory Rate 14 Respiratory Rate 15 Blood Pressure 132/75 Blood Pressure 155/96 Blood Pressure 152/78 Blood Pressure 133/79 Blood Pressure 144/79 Blood Pressure 130/90 Blood Pressure 141/99 Blood Pressure 145/83 O2 Sat by Pulse Oximetry 97 O2 Sat by Pulse Oximetry 97 O2 Sat by Pulse Oximetry 98 O2 Sat by Pulse Oximetry 98 O2 Sat by Pulse Oximetry 97 O2 Sat by Pulse Oximetry 97 O2 Sat by Pulse Oximetry 98 O2 Sat by Pulse Oximetry 98 Assessment/Plan (1) Acute on chronic systolic heart failure: Narrative Support Text: Continue home meds. Consider Jardiance and Entresto. Continue diuresis while monitoring labs closely. Cardiovascular status is grossly normal other than the extremity edema. Possible discharge home tomorrow or Wednesday. 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
[2024-09-17 06:00] LABS: BASOPHILS % (AUTO) 0.6 % (0.2-1.0); EOSINOPHILS # (AUTO) 0.1 x10^3/uL (0.0-0.2); EOSINOPHILS % (AUTO) 1.8 % (0.9-2.9); HEMATOCRIT 35.9 % (42.0-54.0); HEMOGLOBIN 12.1 g/dL (13.5-18.0); LYMPHOCYTES # (AUTO) 0.8 X10^3/uL (1.3-2.9); LYMPHOCYTES % (AUTO) 13.5 % (21.0-51.0); MEAN CORPUSCULAR HEMOGLOBIN 28.2 pg (27.0-34.0); MEAN CORPUSCULAR HGB CONC 33.7 g/dL (33.0-35.0); MEAN CORPUSCULAR VOLUME 83.8 fL (80.0-100.0); MEAN PLATELET VOLUME 10.2 fL (7.4-11.0); MONOCYTES # (AUTO) 0.4 x10^3/uL (0.3-0.8); MONOCYTES % (AUTO) 7.1 % (0.0-13.0); NEUTROPHILS # (AUTO) 4.8 x10^3/uL (2.2-4.8); PLATELET COUNT 75 X10^3/uL (150.0-450.0); RED BLOOD COUNT 4.28 X10^6/uL (4.7-6.0); RED CELL DISTRIBUTION WIDTH 17.8 % (11.6-16.5); WHITE BLOOD COUNT 6.2 X10^3/uL (3.6-10.0)
[2024-09-17 06:16] LABS: ALANINE AMINOTRANSFERASE 18 Units/L (12-78); ALBUMIN 3.1 g/dL (3.4-5.0); ALKALINE PHOSPHATASE 111 Units/L (46-116); ASPARTATE AMINO TRANSFERASE 16 Units/L (15-37); BLOOD UREA NITROGEN 16 mg/dL (7-18); CALCIUM 8.8 mg/dL (8.5-10.1); CARBON DIOXIDE 30.2 mmol/L (21-32); CHLORIDE 105 mmol/L (98-107); COR CA(FOR HYPOALB) 9.5 mg/dL (8.5-10.1); COR NA(FOR HYPERGLY) 142 mmol/L (136-145); GLUCOSE 130 mg/dL (65-99); MAGNESIUM 1.7 mg/dL (2.0-2.9); SODIUM 141 mmol/L (136-145); eGFR NON BLACK RACES 55 (>60)
[2024-09-17] MEDS ORDERED: CONSULT PHARMACY - POTASSIUM & MAGNESIUM XX SCH (07:00)
[2024-09-17 07:28] VITALS: TEMP 97.6
[2024-09-17] MEDS: MAG-OX TAB PO SCH (08:07)
[2024-09-17 11:48] VITALS: BP 126/77; PULSE 92; RESP 17; O2SAT 96
--- NOTE | 2024-09-17 16:35 | PCM.DCPLAN ---
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: Status: Acute (5) Pacemaker: Status: Acute Discharge Medications Discharge Medications: Home Medication List NK 09/15/24 [History] Prescriptions: Hospital Course Vital Signs: Vital Signs Temperature 97.6 F Temperature 97.6 F Temperature 97.6 F Pulse Rate [Left Radial] 92 Pulse Rate [Left Radial] 89 Pulse Rate [Left Radial] 89 Respiratory Rate 17 Respiratory Rate 16 Respiratory Rate 16 Blood Pressure [Left Arm] 126/77 Blood Pressure [Left Arm] 128/84 Blood Pressure [Left Arm] 128/84 O2 Sat by Pulse Oximetry 96 O2 Sat by Pulse Oximetry 94 O2 Sat by Pulse Oximetry 94 Latest Lab Results: Laboratory Last Values WBC 6.2 X10^3/uL (3.6-10.0) 09/17/24 05:14 RBC 4.28 X10^6/uL (4.7-6.0) L 09/17/24 05:14 Hgb 12.1 g/dL (13.5-18.0) L 09/17/24 05:14 Hct 35.9 % (42.0-54.0) L 09/17/24 05:14 MCV 83.8 fL (80.0-100.0) 09/17/24 05:14 MCH 28.2 pg (27.0-34.0) 09/17/24 05:14 MCHC 33.7 g/dL (33.0-35.0) 09/17/24 05:14 RDW 17.8 % (11.6-16.5) H 09/17/24 05:14 Plt Count 75 X10^3/uL (150.0-450.0) L 09/17/24 05:14 MPV 10.2 fL (7.4-11.0) 09/17/24 05:14 Neut % (Auto) 77.0 % (42.0-75.0) H 09/17/24 05:14 Lymph % (Auto) 13.5 % (21.0-51.0) L 09/17/24 05:14 [place] % (Auto) 7.1 % (0.0-13.0) 09/17/24 05:14 Eos % (Auto) 1.8 % (0.9-2.9) 09/17/24 05:14 Baso % (Auto) 0.6 % (0.2-1.0) 09/17/24 05:14 Neut # (Auto) 4.8 x10^3/uL (2.2-4.8) 09/17/24 05:14 Lymph # (Auto) 0.8 X10^3/uL (1.3-2.9) L 09/17/24 05:14 [place] # (Auto) 0.4 x10^3/uL (0.3-0.8) 09/17/24 05:14 Eos # (Auto) 0.1 x10^3/uL (0.0-0.2) 09/17/24 05:14 Baso # (Auto) 0.0 X10^3/uL (0.0-0.1) 09/17/24 05:14 Absolute Nucleated RBC 0.0 /100WBC 09/17/24 05:14 D-Dimer 2.46 ug/ml (0.0-0.57) H 09/15/24 12:50 Sodium 141 mmol/L (136-145) 09/17/24 05:14 Corrected Sodium 142 mmol/L (136-145) 09/17/24 05:14 Potassium 4.0 mmol/L (3.5-5.1) 09/17/24 05:14 Chloride 105 mmol/L (98-107) 09/17/24 05:14 Carbon Dioxide 30.2 mmol/L (21-32) 09/17/24 05:14 BUN 16 mg/dL (7-18) 09/17/24 05:14 Creatinine 1.40 mg/dL (0.70-1.30) H 09/17/24 05:14 Est GFR (MDRD) Af Amer > 60 (>60) 09/17/24 05:14 Est GFR (MDRD) Non-Af 55 (>60) L 09/17/24 05:14 Glucose 130 mg/dL (65-99) H 09/17/24 05:14 Lactic Acid 1.0 mmol/L (0.4-2.0) 09/15/24 14:58 Calcium 8.8 mg/dL (8.5-10.1) 09/17/24 05:14 Corrected Calcium 9.5 mg/dL (8.5-10.1) 09/17/24 05:14 Magnesium 1.7 mg/dL (2.0-2.9) L 09/17/24 05:14 Total Bilirubin 1.60 mg/dL (0.2-1.0) H 09/17/24 05:14 AST 16 Units/L (15-37) 09/17/24 05:14 ALT 18 Units/L (12-78) 09/17/24 05:14 Alkaline Phosphatase 111 Units/L (46-116) 09/17/24 05:14 B-Natriuretic Peptide 1460 pg/mL (0-79) H 09/16/24 04:27 Total Protein 6.0 g/dL (6.4-8.2) L 09/17/24 05:14 Albumin 3.1 g/dL (3.4-5.0) L 09/17/24 05:14 Globulin 2.9 g/dL (2.5-4.5) 09/17/24 05:14 Albumin/Globulin Ratio 1.1 Ratio (1.1-2.1) 09/17/24 05:14 Specimen Type Clean catch urine 09/15/24 16:19 Urine Color Yellow (YELLOW) 09/15/24 16:19 Urine Appearance Clear (CLEAR) 09/15/24 16:19 Urine pH 6.0 (5.0 - 8.0) 09/15/24 16:19 Ur Specific [place] 1.015 (1.000-1.030) 09/15/24 16:19 Urine Protein 2+ (NEGATIVE) 09/15/24 16:19 Urine Glucose (UA) Negative (NEGATIVE) 09/15/24 16: Urine Ketones Negative (NEGATIVE) 09/15/24 16:19 Urine Blood Negative (NEGATIVE) 09/15/24 16:19 Urine Nitrite Negative (NEGATIVE) 09/15/24 16:19 Urine Bilirubin Negative (NEGATIVE) 09/15/24 16:19 Urine Urobilinogen Normal (NORMAL) 09/15/24 16:19 Ur Leukocyte Esterase Negative (NEGATIVE) 09/15/24 16:19 Urine RBC None seen /HPF (0-3) 09/15/24 16:19 Urine WBC None seen /HPF (0-5) 09/15/24 16:19 Ur Squamous Epith Cells Rare /HPF (NEGATIVE) 09/15/24 16:19 Urine Bacteria Negative /HPF (NEGATIVE) 09/15/24 16:19 Ur Culture Indicated? No/not indicated 09/15/24 16:19 Hospital Course: Patient admitted due to CHF exacerbation. Has not been on any medications for a while now. Has not had follow-up with his PCP in over a year. He responded well to diuresis and is requesting to go home today. Vitals have been stable. He is willing to use Lasix. He is also interested in trying Jardiance and Entresto based on byrd. Discharged home with family in improved, baseline condition with great resolution of his upper extremity edema and greatly improved lower extremity edema.
== END 2024-09-17 15:45 | disposition home or self-care (01) | DRG 292 ==
LOC: ER 12:25 → ICU 17:51 → MED/SURG 09-16 16:57
PROVIDERS: ADMIT Family Medicine; ATTEND Family Medicine
DX: I69.354 Hemiplegia and hemiparesis following cerebral infarction affecting left non-dominant side; E11.40 Type 2 diabetes mellitus with diabetic neuropathy, unspecified; I10 Essential (primary) hypertension; D68.9 Coagulation defect, unspecified; Z95.0 Presence of cardiac pacemaker; I25.810 Atherosclerosis of coronary artery bypass graft(s) without angina pectoris; I50.23 Acute on chronic systolic (congestive) heart failure